=== PATIENT | female | born 1940 | race Caucasian/White ===

== ENCOUNTER 2019-09-04 08:30 | Day surgery (SDC) | payer OTHER ==
[2019-09-04] MEDS ORDERED: LIDOCAINE 2% MPF 5 ML VIAL ONE ×2 (08:41→09:47)
[2019-09-04] MEDS ORDERED: ONDANSETRON 4 MG/2 ML VIAL ONE ×2 (08:41→09:47)
[2019-09-04] MEDS ORDERED: KETOROLAC 30 MG/ML INJ ONE ×2 (08:41→09:47)
--- OUTSIDE RECORDS SUMMARY | 2019-09-04 08:49 | XMS REPORT ---
:1940 Author Organization [facility] t Address [address] [place] [address] Care Team Providers Name Role Phone Unavailable Unavailable Unavailable Payers Payer Name Policy Type Policy Number Effective Date Expiration D ate Problems This patient has no known problems. Allergies, Adverse Reactions, Alerts Allergy Name Allergy Status Severity Reaction(s) Onset Inactive Treat ing Comments Type Date Date Clinician Penicillins DA Active U 2019-05 00:00:0 0 codeine DA Active U 2019-05 00:00:0 0 SULFA DRUGS DA Active U 2019-05 00:00:0 0 Medications This patient has no known medications. Results Test Description Test Time Test Comments Text Results Atomic Results Result Comments BASIC METABOLIC PANEL 2019-06-09 07:51:00 Test Item Value Reference Range Comments SODIUM (test code = NA) 140 MMOL/L 137-145 POTASSIUM (test code = K) 3.8 MMOL/L 3.5-5.1 CHLORIDE (test code = CL) 107 MMOL/L 98-107 CARBON DIOXIDE (test code = CO2) 25 MMOL/L 22-30 ANION GAP (test code = GAP) 12 MMOL/L 14-24 GLUCOSE (test code = GLU) 100 MG/DL 74-106 BLOOD UREA NITROGEN (test code = 28 MG/DL 7-17 BUN) GLOMERULAR FILTRATION RATE (test > 60 Reporting units: ml/min/1.73 m2 code = GFR) (Modified MDRD Formula)Referenc e Range: > or = 60 ml/min/1.73 m 2 CREATININE (test code = CREAT) 0.80 MG/DL 0.52-1.04 CALCIUM (test code = CA) 8.7 MG/DL 8.4-10.2 RECOLLECTION NEEDED ON 06/09/19 AT 0621 BY ROBINGXMREASON: HEMOLYZEDNOTIFIED PATIENT CARE STAFF: ADELA- XR CHEST [id number] 07:36:00 Patient Name: ANAHI TOLEDO Unit No: [id number] EXAMS: CPT CODE: [id number] XR CHEST 1V 35526 EXAM: - XR CHEST 1V 06/09/2019 5:00 AM Location code:C3 HISTORY: 79 years-old Female with S/P ICD TECHNIQUE: Frontal portable view of the chest COMPARISON: Chest x-ray performed on 06/08/2019 FINDINGS: Lines and tubes: None. Cardiomediastinal: The cardiomediastinal silhouette is unchanged. There is a dual-lead pacer overlying the left mid hemithorax. Lungs andpleura: The lungs are clear. No pleural effusion. No pneumothorax. Musculoskeletal: No significant skeletal abnormality. IMPRESSION: No radiographic evidence of a focal infiltrate. Cardiac pacer. at 0736 Reported and signed by: Tevin Bobo MD CC: Quentin Locke MD; Tam Moctezuma MD Technologist: Walt Wolfe, RT(R) Transcrpt Date/Tm/Trnsp: 06/09/2019 (0736) t.SDR.CP11 Orig Print D/T: S: 06/09/2019 (0739) [facility] NAME: ANAHI TOLEDO [id number] PHYS: [place] [address] : 1940 AGE: 79 SEX: F LOC: [id number] PHONE #: [phone] EXAM DATE:06/09/2019 STATUS: ADM IN FAX #: [phone] RADIOLOGY NO: PAGE 1 Signed ReportCBC W/AUTO [id number] 05:49:00 Test Item Value Reference Range Comments WHITE BLOOD CELL (test code = WBC) 6.4 K/MM3 3.8-9.8 RED BLOOD CELL (test code = RBC) 4.19 M/MM3 3.58-4.97 HEMOGLOBIN (test code = HGB) 12.1 G/DL 11.2-14.9 HEMATOCRIT (test code = HCT) 38.0 % 33.2-43.5 MEAN CELL VOLUME (test code = MCV) 91 fL 80.7-99.1 MEAN CELL HGB (test code = MCH) 28.9 pg 27.0-34.1 MEAN CELL HGB CONCETRATION (test code = MCHC) 31.8 % 32 .2-35.7 RED CELL DISTRIBUTION WIDTH (test code = RDW) 14.6 % 12 .1-15.2 PLATELET COUNT (test code = PLT) 190 K/MM3 129-368 MEAN PLATELET VOLUME (test code = MPV) 11.4 fl 7.4-10.4 NEUTROPHIL % (test code = NT%) 59.3 % 43-75 IMMATURE GRANULOCYTE % (test code = IG%) 0.2 % 0.0-2.0 LYMPHOCYTE % (test code = LY%) 30.6 % 14-44 MONOCYTE % (test code = MO%) 8.3 % 4-13 EOSINOPHIL % (test code = EO%) 1.4 % 0-6 BASOPHIL % (test code = BA%) 0.2 % 0-2 NUCLEATED RBC % (test code = NRBC%) 0.0 % 0-1.0 NEUTROPHIL # (test code = NT#) 3.80 K/mm3 2.0-7.6 IMMATURE GRANULOCYTE # (test code = IG#) 0.01 x10 3/uL 0-0.03 LYMPHOCYTE # (test code = LY#) 1.96 K/mm3 1.0-3.8 MONOCYTE # (test code = MO#) 0.53 K/mm3 0.1-0.8 EOSINOPHIL # (test code = EO#) 0.09 K/mm3 0.0-0.2 BASOPHIL # (test code = BA#) 0.01 K/mm3 0.0-0.2 NUCLEATED RBC # (test code = NRBC#) 0.00 K/mm3 0.0-0.1 - XR CHEST [id number] 15:38:00 Patient Name: ANAHI TOLEDO Unit No: [id number] EXAMS: CPT CODE: [id number] XR CHEST 1V [id number] EXAM: Portable chest x-ray Dictation location: [id number]: None INDICATION: S/P ICD DISCUSSION: A dual-lead pacemaker is in place, with mild to moderate cardiac silhouette enlargement. No pneumothorax is identified. Mild interstitial or peribronchial opacity is noted. No consolidation or pleural effusion is seen. No acute bony abnormalities are identified. IMPRESSION: 1. A dual-lead pacemaker is in place. There is no evidence of pneumothorax. 2. Mild to moderate cardiac silhouette enlargement. There is mild interstitial or peribronchial opacity which could be due to senescent change, mild edema, or bronchitis. at 1538 Reported and signed by: Wilber Zavaleta MD CC: Quentin Locke MD; Tam Moctezuma MD Technologist: Jesus Becerril (RT) (R) Transcrpt Date/Tm/Trnsp: 06/08/2019(1538) t.SDR.BC0 Orig Print D/T: S: 06/08/2019 (0864) [facility] NAME: ANAHI TOLEDO [id number] PHYS: [place] [address] : 1940 AGE: 79 SEX: F LOC: [id number] A PHONE #: [phone] EXAM DATE: 06/08/2019 STATUS: ADM IN FAX #: [phone] RADIOLOGY NO: PAGE 1 Signed ReportBASIC METABOLIC [id number] 08:36:00 Test Item Value Reference Range Comments SODIUM (test code = NA) 142 MMOL/L 137-145 POTASSIUM (test code = K) 3.9 MMOL/L 3.5-5.1 CHLORIDE (test code = CL) 104 MMOL/L 98-107 CARBON DIOXIDE (test code = 28 MMOL/L 22-30 CO2) GLUCOSE (test code = GLU) 108 MG/DL 74-106 BLOOD UREA NITROGEN (test code 37 MG/DL 7-17 = BUN) GLOMERULAR FILTRATION RATE 43 Repor ting units: ml/min/1.73 (test code = GFR) m2 (Modified MDRD Formula)Referenc e Range: > or = 60 ml/min/1 .73 m2 CREATININE (test code = CREAT) 1.20 MG/DL 0.52-1.04 CALCIUM (test code = CA) 9.5 MG/DL 8.4-10.2 LIPID PROFILE (CORONARY RISK)2019-06-08 08:36:00 Test Item Value Reference Range Comments TRIGLYCERIDES (test code = 116 MG/DL TRIGL YCERIDES REFERENCE TRIG) RANGE:Normal: <1 50 mg/dLBorderline High: 150-199 mg/dLHigh: 200-4 99 mg/dLVery High: >=500 mg/d L CHOLESTEROL (test code = CHOL) 178 MG/DL <200 HDL CHOLESTEROL (test code = 48 MG/DL 40-59 HDL) LIPOPROTEIN LDL (test code = 99 MG/DL 0-99 LDL) OPTIMAL......... <100 mg/dLNEAR OPTIMA L/ABOVE OPTIMAL......... 100-129 mg/dL BORDER LINE HIGH.........130 -159 mg/dL HIGH.........160 -189 mg/dL MAUREEN Y HIGH.........>/= 190 mg/dL [id number] 08:36:00 Test Item Value Reference Range Comments MAGNESIUM (test code = MAG) 2.1 MG/DL 1.6-2.3 BASIC METABOLIC [id number] 08:26:00 Test Item Value Reference Range Comments SODIUM (test code = NA) 142 MMOL/L 137-145 POTASSIUM (test code = K) 3.9 MMOL/L 3.5-5.1 CHLORIDE (test code = CL) 104 MMOL/L 98-107 CARBON DIOXIDE (test code = 28 MMOL/L 22-30 CO2) GLUCOSE (test code = GLU) 108 MG/DL 74-106 BLOOD UREA NITROGEN (test code 37 MG/DL 7-17 = BUN) GLOMERULAR FILTRATION RATE 43 Repor ting units: ml/min/1.73 (test code = GFR) m2 (Modified MDRD Formula)Referenc e Range: > or = 60 ml/min/1 .73 m2 CREATININE (test code = CREAT) 1.20 MG/DL 0.52-1.04 CALCIUM (test code = CA) 9.5 MG/DL 8.4-10.2 LIPID PROFILE (CORONARY RISK)2019-06-08 08:26:00 Test Item Value Reference Range Comments TRIGLYCERIDES (test code = 116 MG/DL TRIGL YCERIDES REFERENCE TRIG) RANGE:Normal: <1 50 mg/dLBorderline High: 150-199 mg/dLHigh: 200-4 99 mg/dLVery High: >=500 mg/d L CHOLESTEROL (test code = CHOL) 178 MG/DL <200 HDL CHOLESTEROL (test code = 48 MG/DL 40-59 HDL) LIPOPROTEIN LDL (test code = MG/DL 0-99 LDL) [id number] 08:26:00 Test Item Value Reference Range Comments MAGNESIUM (test code = MAG) 2.1 MG/DL 1.6-2.3 BASIC METABOLIC [id number] 08:25:00 Test Item Value Reference Range Comments SODIUM (test code = NA) 142 MMOL/L 137-145 POTASSIUM (test code = K) 3.9 MMOL/L 3.5-5.1 CHLORIDE (test code = CL) 104 MMOL/L 98-107 CARBON DIOXIDE (test code = 28 MMOL/L 22-30 CO2) GLUCOSE (test code = GLU) 108 MG/DL 74-106 BLOOD UREA NITROGEN (test code 37 MG/DL 7-17 = BUN) GLOMERULAR FILTRATION RATE 43 Repor ting units: ml/min/1.73 (test code = GFR) m2 (Modified MDRD Formula)Referenc e Range: > or = 60 ml/min/1 .73 m2 CREATININE (test code = CREAT) 1.20 MG/DL 0.52-1.04 CALCIUM (test code = CA) MG/DL 8.7-9.7 LIPID PROFILE (CORONARY RISK)2019-06-08 08:25:00 Test Item Value Reference Range Comments TRIGLYCERIDES (test code = 116 MG/DL TRIGL YCERIDES REFERENCE TRIG) RANGE:Normal: <1 50 mg/dLBorderline High: 150-199 mg/dLHigh: 200-4 99 mg/dLVery High: >=500 mg/d L CHOLESTEROL (test code = CHOL) 178 MG/DL <200 HDL CHOLESTEROL (test code = MG/DL 40-59 HDL) LIPOPROTEIN LDL (test code = MG/DL 0-99 LDL) [id number] 08:25:00 Test Item Value Reference Range Comments MAGNESIUM (test code = MAG) MG/DL 1.6-2.3 BASIC METABOLIC [id number] 08:22:00 Test Item Value Reference Range Comments SODIUM (test code = NA) 142 MMOL/L 137-145 POTASSIUM (test code = K) 3.9 MMOL/L 3.5-5.1 CHLORIDE (test code = CL) 104 MMOL/L 98-107 CARBON DIOXIDE (test code = CO2) MMOL/L 22-30 GLUCOSE (test code = GLU) MG/DL 74-106 BLOOD UREA NITROGEN (test code = BUN) MG/DL 7-17 GLOMERULAR FILTRATION RATE (test code = GFR) CREATININE (test code = CREAT) MG/DL 0.52-1.04 CALCIUM (test code = CA) MG/DL 8.7-9.7 LIPID PROFILE (CORONARY RISK)2019-06-08 08:22:00 Test Item Value Reference Range Comments TRIGLYCERIDES (test code = TRIG) MG/DL CHOLESTEROL (test code = CHOL) MG/DL <200 HDL CHOLESTEROL (test code = HDL) MG/DL 40-59 LIPOPROTEIN LDL (test code = LDL) MG/DL 0-99 [id number] 08:22:00 Test Item Value Reference Range Comments MAGNESIUM (test code = MAG) MG/DL 1.6-2.3 PROTHROMBIN [id number] 08:17:00 Test Item Value Reference Range Comments PROTHROMBIN TIME PATIENT (test 11.9 SECONDS 9.6-11.6 code = PTP) INTERNATIONAL NORMAL RATIO 1.1 0.8-1.1 The I NR is to be used only (test code = INR) for monitoring oral anticoagulantthe rapy. INDICATION INR VALUE 1. Prophylaxis, vy p venous thrombosis, i ncluding high risk surger y. 2.0 - 3 .0 2. Prophylaxis, vy p venous thrombosis, h ip surgery, treatme nt for deep venous t hrombosis or pulmonary pre vention of systemic embo lism in patients with valvular heart disease, a trial fibrillation, tissue heart valve, or acute myocardial in farction. 2.0 - 3.0 3 . Mechanical prost hesis heart valves, recurrent systemic embolis m. 3.0 - 4. 5 PTT [id number] 08:17:00 Test Item Value Reference Range Comments PTT ACTIVATED (test code = APTT) 25.8 SECONDS 22.0-33.0 CBC W/AUTO [id number] 07:59:00 Test Item Value Reference Range Comments WHITE BLOOD CELL (test code = WBC) 8.1 K/MM3 3.8-9.8 RED BLOOD CELL (test code = RBC) 4.50 M/MM3 3.58-4.97 HEMOGLOBIN (test code = HGB) 13.1 G/DL 11.2-14.9 HEMATOCRIT (test code = HCT) 41.4 % 33.2-43.5 MEAN CELL VOLUME (test code = MCV) 92 fL 80.7-99.1 MEAN CELL HGB (test code = MCH) 29.1 pg 27.0-34.1 MEAN CELL HGB CONCETRATION (test code = MCHC) 31.6 % 32 .2-35.7 RED CELL DISTRIBUTION WIDTH (test code = RDW) 14.6 % 12 .1-15.2 PLATELET COUNT (test code = PLT) 189 K/MM3 129-368 MEAN PLATELET VOLUME (test code = MPV) 10.6 fl 7.4-10.4 NEUTROPHIL % (test code = NT%) 62.6 % 43-75 IMMATURE GRANULOCYTE % (test code = IG%) 0.2 % 0.0-2.0 LYMPHOCYTE % (test code = LY%) 27.5 % 14-44 MONOCYTE % (test code = MO%) 9.0 % 4-13 EOSINOPHIL % (test code = EO%) 0.5 % 0-6 BASOPHIL % (test code = BA%) 0.2 % 0-2 NUCLEATED RBC % (test code = NRBC%) 0.0 % 0-1.0 NEUTROPHIL # (test code = NT#) 5.08 K/mm3 2.0-7.6 IMMATURE GRANULOCYTE # (test code = IG#) 0.02 x10 3/uL 0-0.03 LYMPHOCYTE # (test code = LY#) 2.23 K/mm3 1.0-3.8 MONOCYTE # (test code = MO#) 0.73 K/mm3 0.1-0.8 EOSINOPHIL # (test code = EO#) 0.04 K/mm3 0.0-0.2 BASOPHIL # (test code = BA#) 0.02 K/mm3 0.0-0.2 NUCLEATED RBC # (test code = NRBC#) 0.00 K/mm3 0.0-0.1
--- OUTSIDE RECORDS SUMMARY | 2019-09-04 08:54 | XMS REPORT | Summary of Care ---
:1940 Author Organization [facility] - Health Address [address] [place] [address] Care Team Providers Name Role Phone Pcp, Does Not Have A Primary Care Provider Encounter Details Date Type Department Care Team Description 09/04/2019 Orders Only [facility] Doctor Unassigned, No [address] [facility] [place] [address] [address] [place] [address] Allergies Active Allergy Reactions Severity Noted Date Comments Codeine Other - See comments 11/17/2014 Has had norco 10 07/2019 without issue (other than exc essive sedation). Penicillins Hives 11/17/2014 Was able to hav e ceftriaxone 07/14 020 without hives o r itching. Sulfa (Sulfonamide Unknown - See 11/17/2014 Antibiotics) comments documented as of this encounter (statuses as of 09/04/2019) Medications Medication Sig Dispensed Refills Start Date End Date Status CALCIUM Take by mouth. 0 Acti ve CARBONATE/VITAMIN D2 (CALCIUM 600 + D ORAL) vitamin B-12 Take 1,000 mcg by 0 Active (VITAMIN B-12) 1,000 mouth daily. mcg tablet amLODIPine 5 mg Take 5 mg by mouth 0 Active tablet daily. simvastatin (ZOCOR) Take 40 mg by mouth 0 Active 40 mg tablet at bedtime. Magnesium 250 mg Tab Take by mouth. 0 Active omeprazole 40 mg Take 40 mg by mouth 0 Active capsule daily. loratadine (CLARITIN Take by mouth. 0 Active ORAL) levothyroxine 125 Take 125 mcg by 0 Active mcg tablet mouth. metoprolol succinate Take 0.5 tablets by 90 tablet 3 0 Active XL 25 mg 24 hr mouth 2 (two) times tabletIndications: daily. Closed fracture of left hip, initial encounter montelukast 10 mg Take 1 tablet by 90 tablet 3 08/12/2019 Active tabletIndications: mouth every evening. Closed fracture of left hip, initial encounter sennosides 8.6 mg Take 1 tablet by 30 tablet 0 08/13/2019 Active tabletIndications: mouth daily. Closed fracture of left hip, initial encounter polyethylene glycol Take 17 g by mouth 30 Packet 3 08/12/2019 Active 17 gram/dose daily. powderIndications: Closed fracture of left hip, initial encounter simethicone 80 mg Take 1 tablet by 60 tablet 1 08/12/2019 Active chewable mouth 2 (two) times tabletIndications: daily as needed for Closed fracture of Gas. left hip, initial encounter benzocaine-menthol Take 1 Lozenge by 120 Lozenge 2 08/16/2019 Active lozengeIndications: mouth every 4 (four) Closed fracture of hours as needed for left hip, initial Sore throat. encounter apixaban 5 mg Take 1 tablet by 60 tablet 2 08/16/2019 Active tabletIndications: mouth 2 (two) times prevention of daily. Indications: thromboembolism in prevention of paroxysmal atrial thromboembolism in fib, clotting paroxysmal atrial disorder fibrillation, clotting disorder gabapentin 100 mg Take 1 capsule by 90 capsule 0 08/16/2019 Active capsuleIndications: mouth 3 (three) Closed fracture of times daily. left hip, initial encounter amiodarone 100 mg Take 1 tablet by 30 tablet 2 08/16/2019 Active tabletIndications: mouth daily. Closed fracture of left hip, initial encounter traMADol 50 mg Take 1 tablet by 20 tablet 0 08/16/2019 Active tabletIndications: mouth every 6 (six) Closed fracture of hours as needed for left hip, initial Pain (scale 7-10). 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 Closed displaced intertrochanteric fracture of left fe mur, initial 08/08/2019 encounter Overview: Added automatically from request for xu tobias [id number] documented as of this encounter (statuses as of 09/04/2019) Immunizations Name Administration Dates Next Due Influenza Virus Vaccine - Whole 02/12/2019 documented as of this encounter Social History Tobacco Use Types Packs/Day Years Used Date Never Smoker Smokeless Tobacco: Never Used Alcohol Use Drinks/Week oz/Week Comments No Sex Assigned at Date Recorded Not on file Job Start Date Occupation Industry Not on file Not on file Not on file Travel History Travel Start Travel End No recent travel history available. documented as of this encounter Last Filed Vital Signs Not on filedocumented in this encounter Plan of Treatment Health Maintenance Due Date Last Done Comments DTaP,Tdap,and Td Vaccines (1 - Tdap) 1951 Zoster Recombinant Vaccine (SHINGRIX) (1 of 2) 1988 Medicare Wellness Visit 2003 Osteoporosis Screening 2003 PNEUMOCOCCAL VACCINES 65+ (1 of 2 - PCV13) 2003 INFLUENZA VACCINE Completed 02/12/2019 documented as of this encounter Implants Implanted Type Area Marketing Program Manager Device Shelf Model / Identifier Expiration Date Ser ial / Lot Lead-06/08/2019 Lead Chest [employer] 7741-INGEVITY MRI IS-RV / Implanted: Qty: 1 on 06/08/2019 by Quentin Locke MD [id number] / Description:MR CONDITIONAL UP TO 3.0T Lead-06/08/2019 Lead Chest [employer] 7740-INGEVITY MRI IS-RA / Implanted: Qty: 1 on 06/08/2019 by Quentin Locke MD [id number] / Description:MR CONDITIONAL UP TO 3.0T Nail 11mm/130 Deg Ti Qasim Tfna 420mm/Lef t - Sterile James Ref#[id number] - Sn/A NAIL Left: Leg James 04/13/2029 [id number] / Implanted: Qty: 1 on 08/08/2019 by Claudio Domínguez II, MD at [facility] N/A / [id number] Pacemaker-06/08/2019 PACEMAKER Chest [employer] [id number] MRI DR / Implanted: Qty: 1 on 06/08/2019 by Quentin Locke MD Scientific [id number] / Description:MR CONDITIONAL UP TO 3.0T Screw, Synthes 5.0mm Ti Lckng W/T25 Star 40mm #[id number] - Sn/A SCREW Left: Leg Synthes 05/14/2028 04.005.530 / Implanted: Qty: 1 on 08/08/2019 by Claudio Domínguez II, MD at [facility] N/A / [id number] Screw, Synthes 5.0mm Ti Lckng W/T25 Star 48mm #[id number] - Sn/A SCREW Left: Leg Synthes 05/14/2028 04.005.538S / Implanted: Qty: 1 on 08/08/2019 by Claudio Domínguez II, MD at [facility] N/A / [id number] documented as of this encounter Procedures Procedure Name Priority Date/Time Associated Diagnosis Comme nts EXTERNAL PROVIDER Routine 09/04/2019 12:01 AM CDT RECORDS documented in this encounter Results Not on filedocumented in this encounter Insurance Payer Benefit Plan / Subscriber ID Effective Phone Address T [facility] Group Dates MEDICARE MEDICARE PART xxxxxxxxxxx 2003-Pre [phone] [address] [place] [employer] sent [phone] [place] [phone] [facility] [id number] 1998-Pre [address] [facility] sent [id number] Supplement MEDICARE [place] SUPPLEMENT F[place] BRADSHAW [id number] documented as of this encounter
[2019-09-04] MEDS ORDERED: CEFAZOLIN/SWI 1gm 1 GM/10 ML SYR ONE (09:03)
[2019-09-04] MEDS ORDERED: Ringers Lactate 1,000 ML IV ONE (09:03)
[2019-09-04] MEDS ORDERED: FENTANYL CITR 100 MCG/2 ML ONE (09:47)
[2019-09-04] MEDS ORDERED: propofoL 200 MG/20 ML VIAL IV ONE (09:47)
[2019-09-04] MEDS ORDERED: EPHEDRINE SULF 50 MG/ML VIAL ONE (09:48)
[2019-09-04] MEDS ORDERED: NS 0.9% VIAL 20 ML ONE (09:48)
[2019-09-04] MEDS ORDERED: Phenylephrine HCl 10 MG/ML 1 ML VIAL ONE (09:48)
[2019-09-04] MEDS ORDERED: COLLAGENASE 30 GM OINTMENT TOP ONE (10:15)
[2019-09-04 11:03] VITALS: TEMP 97.6
--- NOTE | 2019-09-04 12:12 | OP ---
Date of Procedure: 09/04/2019 Surgeon: Eugenio Hartman MD Preoperative Diagnosis: Sacral decubitus. Postoperative Diagnosis: Stage IV sacral decubitus. Procedure Performed: Excisional debridement of sacral decubitus, 10 x 10 x 6 cm to subcutaneous tiss ue and muscle, pulse irrigation. Estimated Blood Loss: Minimal. Specimen: Necrotic tissue and culture and sensitivity. Findings: As above. Anesthesia: General. Complications: None. Disposition: Patient tolerated the procedure in stable condition, taken to Recovery in good general condition. Procedure In Detail: Patient was brought to the OR and placed in supine position and general anesthe yo begun. Patient was prepped and draped in the usual sterile fashion in the right lateral position , and then Marcaine 0.5% was infiltrated locally. Please note, the wound was very close to the anus and then scissors and cautery utilized to debride all necrotic tissue all the way down to the sacral bone cutting through the subcutaneous tissue and muscle and all nonviable tissue excised, sent for cu lture and pathology. Pulse irrigation utilized. Bleeding controlled with cautery and then collagena se wet- to-dry dressing change applied. Patient tolerated the procedure in stable condition and taken to rec overy in good general condition. /MODL Voice ID: [id number] Report ID: [id number]
--- NOTE | 2019-09-04 12:21 | DS ---
Patient will go to Day Surgery and senior care when stable. Disposition: senior care. Condition: Stable. Discharge Instructions: Resume diet and medications. Activity as tolerated. Offload wound, turned q.2 hours air mattress. Ultracet 1 tablet p.o. q.4 p.r.n. pain, Cipro 500 mg p.o. q.12, Santyl with wet-to-dry normal saline dressing changes as ordered and I will follow up the patient in the senior care next week. LOUISA/UBALDO Voice ID: [id number] Report ID: [id number]
[2019-09-04 12:30] VITALS: BP 129/51; O2SAT 97
[2019-09-04] MEDS ORDERED: CEFAZOLIN/SWI 2gm 0 GM/0 ML SYR ONE (14:02)
== END 2019-09-04 12:19 | disposition home health service (06) ==
LOC: OR 08:30
PROVIDERS: ATTEND Surgery
PROC: 0KBN0ZZ Excision of Right Hip Muscle, Open Approach (ICD-10-PCS; 2019-09-04)
PROC: 0KBP0ZZ Excision of Left Hip Muscle, Open Approach (ICD-10-PCS; principal; 2019-09-04 09:00)
DX: L89.154 Pressure ulcer of sacral region, stage 4 (principal); I48.91 Unspecified atrial fibrillation; I10 Essential (primary) hypertension; G47.33 Obstructive sleep apnea (adult) (pediatric); Z99.81 Dependence on supplemental oxygen; E78.5 Hyperlipidemia, unspecified; E05.90 Thyrotoxicosis, unspecified without thyrotoxic crisis or storm; K21.9 Gastro-esophageal reflux disease without esophagitis; R53.81 Other malaise; Z88.0 Allergy status to penicillin; Z88.2 Allergy status to sulfonamides; Z88.6 Allergy status to analgesic agent
CPT/HCPCS: 87070; 87205; 88304; 87077; 87186; 87176; 11043; 11046 ×4; J2370; J0690; J7120; J2405; J2704; J3010; J3590

== ENCOUNTER 2020-01-23 01:50 | Inpatient (IN) | payer OTHER ==
--- OUTSIDE RECORDS SUMMARY | 2020-01-23 01:53 | XMS REPORT | Continuity of Care Document ---
:1940 Author Organization [facility] t Address [address] [place] [address] Care Team Providers Name Role Phone Gina HANDLEY Attending Clinician Kayleen Zamarripa MD Attending Clinician Tato Franks PA-C Attending Clinician Payers Payer Name Policy Type Policy Number Effective Date Expiration Date S ource Problems This patient has no known problems. Allergies, Adverse Reactions, Alerts Allergy Allergy Status Severity Reaction(s) Onset Inactive Treating Comm ents Source Name Type Date Date Clinician [place] DA Active U 2020-0 [facility] ins 06-07 00:00: [address] codeine DA Active U 2020-0 [facility] 06-07 00:00: [address] SULFA DA Active U 2020-0 [facility] DRUGS 06-07 00:00: [address] Medications This patient has no known medications. Procedures This patient has no known procedures. Encounters Start End Encounter Admission Attending Care Care Encounter Source Date/Time Date/Time Type Type Clinicians Facility Department ID 2019-10-24 2019-10-24 [facility] [id number] 13:01:00 23:59:00 Encounter Claudio GRIFFITH [id number] CARE [id number] PAVILLION [id number] 2019-10-24 2019-10-24 Abstract Dallin [facility] [id number] 00:00:00 00:00:00 [place] [facility] [id number] [facility] CARE [id number] PAVILLION [id number] 2019-10-23 2019-10-23 Telephone [facility] [id number] 00:00:00 00:00:00 [facility] [id number] CLINICS [id number] 2019-09-19 2019-09-23 Office Gina [facility] [id number] 10:38:20 09:03:40 Visit Claudio [facility] [id number] CARE [id number] PAVILLION [id number] Results Test Description Test Time Test Comments Results Result Comments Source BASIC METABOLIC PANEL 2019-06-09 07:51:00 Test Item Value Reference Range Interpretation Comme nts SODIUM (test code = NA) 140 MMOL/L 137-145 N POTASSIUM (test code = K) 3.8 MMOL/L 3.5-5.1 N CHLORIDE (test code = CL) 107 MMOL/L 98-107 N CARBON DIOXIDE (test code = CO2) 25 MMOL/L 22-30 N ANION GAP (test code = GAP) 12 MMOL/L 14-24 L GLUCOSE (test code = GLU) 100 MG/DL 74-106 N BLOOD UREA NITROGEN (test code = 28 MG/DL 7-17 H BUN) GLOMERULAR FILTRATION RATE (test > 60 Reporting units: ml/min/1.73 code = GFR) m2 (Modified M DRD Formula)Referen ce Range: > or = 60 ml/min/1.7 3 m2 CREATININE (test code = CREAT) 0.80 MG/DL 0.52-1.04 N CALCIUM (test code = CA) 8.7 MG/DL 8.4-10.2 N RECOLLECTION NEEDED ON 06/09/19 AT 0621 BY ROBINGXMREASON: HEMOLYZEDNOTIFIED PATIENT CARE STAFF: JADYN XR CHEST [id number] 07:36:00 Patient Name: ANAHI TOLEDO Unit No: [id number] EXAMS: CPT CODE: [id number] XR CHEST 1V [id number] EXAM: - XR CHEST 1V 06/09/2019 5:00 [...] Walt Wolfe, RT(R) Transcrpt Date/Tm/Trnsp: 06/09/2019 (0736) [email or web address] Orig Print D/T: S: 06/09/2019 (0739) [facility] NAME: ANAHI TOLEDO [id number] PHYS: [place] [address] : 1940 AGE: 79 SEX: F LOC: Z.357 A PHONE #: [phone] EXAM DATE:06/09/2019 STATUS: ADM IN FAX #: [phone] RADIOLOGY NO: PAGE 1 Signed ReportCBC W/AUTO [id number] 05:49:00 Test Item Value Reference Range Interpretation Comments WHITE BLOOD CELL (test code = 6.4 K/MM3 3.8-9.8 N WBC) RED BLOOD CELL (test code = 4.19 M/MM3 3.58-4.97 N RBC) HEMOGLOBIN (test code = HGB) 12.1 G/DL 11.2-14.9 N HEMATOCRIT (test code = HCT) 38.0 % 33.2-43.5 N MEAN CELL VOLUME (test code = 91 fL 80.7-99.1 N MCV) MEAN CELL HGB (test code = MCH) 28.9 pg 27.0-34.1 N MEAN CELL HGB CONCETRATION 31.8 % 32.2-35.7 L (test code = MCHC) RED CELL DISTRIBUTION WIDTH 14.6 % 12.1-15.2 N (test code = RDW) PLATELET COUNT (test code = 190 K/MM3 129-368 N PLT) MEAN PLATELET VOLUME (test code 11.4 fl 7.4-10.4 H = MPV) NEUTROPHIL % (test code = NT%) 59.3 % 43-75 N IMMATURE GRANULOCYTE % (test 0.2 % 0.0-2.0 N code = IG%) LYMPHOCYTE % (test code = LY%) 30.6 % 14-44 N MONOCYTE % (test code = MO%) 8.3 % 4-13 N EOSINOPHIL % (test code = EO%) 1.4 % 0-6 N BASOPHIL % (test code = BA%) 0.2 % 0-2 N NUCLEATED RBC % (test code = 0.0 % 0-1.0 N NRBC%) NEUTROPHIL # (test code = NT#) 3.80 K/mm3 2.0-7.6 N IMMATURE GRANULOCYTE # (test 0.01 x10 3/uL 0-0.03 N code = IG#) LYMPHOCYTE # (test code = LY#) 1.96 K/mm3 1.0-3.8 N MONOCYTE # (test code = MO#) 0.53 K/mm3 0.1-0.8 N EOSINOPHIL # (test code = EO#) 0.09 K/mm3 0.0-0.2 N BASOPHIL # (test code = BA#) 0.01 K/mm3 0.0-0.2 N NUCLEATED RBC # (test code = 0.00 K/mm3 0.0-0.1 N NRBC#) - XR CHEST [id number] 15:38:00 Patient Name: ANAHI TOLEDO Unit No: [id number] EXAMS: CPT CODE: [id number] XR CHEST 1V [id number] EXAM: Portable chest x-ray Dictation location: [id number]: None INDICATION: S/P ICD DISCUSSION: A dual-lead [...] 06/08/2019(1538) [email or web address] Orig Print D/T: S: 06/08/2019 (2521) [facility] NAME: ANAHI TOLEDO [place] [address] PHYS: [place] [address] : 1940 AGE: 79 SEX: F LOC: Z.357 A PHONE #: [phone] EXAM DATE: 06/08/2019 STATUS: ADM IN FAX #: [phone] RADIOLOGY NO: PAGE 1 Signed ReportBASIC METABOLIC [id number] 08:36:00 Test Item Value Reference Range Interpretation Comments SODIUM (test code = 142 MMOL/L 137-145 N NA) POTASSIUM (test code = 3.9 MMOL/L 3.5-5.1 N K) CHLORIDE (test code = 104 MMOL/L 98-107 N CL) CARBON DIOXIDE (test 28 MMOL/L 22-30 N code = CO2) GLUCOSE (test code = 108 MG/DL 74-106 H GLU) BLOOD UREA NITROGEN 37 MG/DL 7-17 H (test code = BUN) GLOMERULAR FILTRATION 43 Report ing units: RATE (test code = GFR) ml/mi n/1.73 m2 (Modified MDRD Formula)Referen ce Range: > or = 6 0 ml/min/1.73 m2 CREATININE (test code 1.20 MG/DL 0.52-1.04 H = CREAT) CALCIUM (test code = 9.5 MG/DL 8.4-10.2 N CA) LIPID PROFILE (CORONARY RISK)2019-06-08 08:36:00 Test Item Value Reference Range Interpretation Comments TRIGLYCERIDES (test 116 MG/DL TRIGLYCE RIDES code = TRIG) REFERENCE RANGE:Normal: < 150 mg/dLBorderline High: 150-199 mg/dLHi gh: 200-499 mg/dLVe ry High: >=500 mg/ dL CHOLESTEROL (test code 178 MG/DL <200 = CHOL) HDL CHOLESTEROL (test 48 MG/DL 40-59 N code = HDL) LIPOPROTEIN LDL (test 99 MG/DL 0-99 N code = LDL) OPTIMAL........ .<100 mg/dLNEAR OPTIMAL/ABOVE OPTIMAL........ .100-12 9 mg/dL BORDERLINE HIGH.........13 0-159 mg/dL HIGH.........16 0-189 mg/dL VERY HIGH...... ...>/= 190 mg/dL [id number] 08:36:00 Test Item Value Reference Range Interpretation Comments MAGNESIUM (test code = MAG) 2.1 MG/DL 1.6-2.3 N BASIC METABOLIC [id number] 08:26:00 Test Item Value Reference Range Interpretation Comments SODIUM (test code = 142 MMOL/L 137-145 N NA) POTASSIUM (test code = 3.9 MMOL/L 3.5-5.1 N K) CHLORIDE (test code = 104 MMOL/L 98-107 N CL) CARBON DIOXIDE (test 28 MMOL/L 22-30 N code = CO2) GLUCOSE (test code = 108 MG/DL 74-106 H GLU) BLOOD UREA NITROGEN 37 MG/DL 7-17 H (test code = BUN) GLOMERULAR FILTRATION 43 Report ing units: RATE (test code = GFR) ml/mi n/1.73 m2 (Modified MDRD Formula)Referen ce Range: > or = 6 0 ml/min/1.73 m2 CREATININE (test code 1.20 MG/DL 0.52-1.04 H = CREAT) CALCIUM (test code = 9.5 MG/DL 8.4-10.2 N CA) LIPID PROFILE (CORONARY RISK)2019-06-08 08:26:00 Test Item Value Reference Range Interpretation Comments TRIGLYCERIDES (test 116 MG/DL TRIGLYCE RIDES code = TRIG) REFERENCE RANGE:Normal: < 150 mg/dLBorderline High: 150-199 mg/dLHi gh: 200-499 mg/dLVe ry High: >=500 mg/ dL CHOLESTEROL (test code 178 MG/DL <200 = CHOL) HDL CHOLESTEROL (test 48 MG/DL 40-59 N code = HDL) LIPOPROTEIN LDL (test MG/DL 0-99 code = LDL) [id number] 08:26:00 Test Item Value Reference Range Interpretation Comments MAGNESIUM (test code = MAG) 2.1 MG/DL 1.6-2.3 N BASIC METABOLIC [id number] 08:25:00 Test Item Value Reference Range Interpretation Comments SODIUM (test code = 142 MMOL/L 137-145 N NA) POTASSIUM (test code = 3.9 MMOL/L 3.5-5.1 N K) CHLORIDE (test code = 104 MMOL/L 98-107 N CL) CARBON DIOXIDE (test 28 MMOL/L 22-30 N code = CO2) GLUCOSE (test code = 108 MG/DL 74-106 H GLU) BLOOD UREA NITROGEN 37 MG/DL 7-17 H (test code = BUN) GLOMERULAR FILTRATION 43 Report ing units: RATE (test code = GFR) ml/mi n/1.73 m2 (Modified MDRD Formula)Referen ce Range: > or = 6 0 ml/min/1.73 m2 CREATININE (test code 1.20 MG/DL 0.52-1.04 H = CREAT) CALCIUM (test code = MG/DL 8.7-9.7 CA) LIPID PROFILE (CORONARY RISK)2019-06-08 08:25:00 Test Item Value Reference Range Interpretation Comments TRIGLYCERIDES (test 116 MG/DL TRIGLYCE RIDES code = TRIG) REFERENCE RANGE:Normal: < 150 mg/dLBorderline High: 150-199 mg/dLHi gh: 200-499 mg/dLVe ry High: >=500 mg/ dL CHOLESTEROL (test code 178 MG/DL <200 = CHOL) HDL CHOLESTEROL (test MG/DL 40-59 code = HDL) LIPOPROTEIN LDL (test MG/DL 0-99 code = LDL) [id number] 08:25:00 Test Item Value Reference Range Interpretation Comments MAGNESIUM (test code = MAG) MG/DL 1.6-2.3 BASIC METABOLIC [id number] 08:22:00 Test Item Value Reference Range Interpretation Comments SODIUM (test code = NA) 142 MMOL/L 137-145 N POTASSIUM (test code = K) 3.9 MMOL/L 3.5-5.1 N CHLORIDE (test code = CL) 104 MMOL/L 98-107 N CARBON DIOXIDE (test code = CO2) MMOL/L 22-30 GLUCOSE (test code = GLU) MG/DL 74-106 BLOOD UREA NITROGEN (test code = MG/DL 7-17 BUN) GLOMERULAR FILTRATION RATE (test code = GFR) CREATININE (test code = CREAT) MG/DL 0.52-1.04 CALCIUM (test code = CA) MG/DL 8.7-9.7 LIPID PROFILE (CORONARY RISK)2019-06-08 08:22:00 Test Item Value Reference Range Interpretation Comments TRIGLYCERIDES (test code = TRIG) MG/DL CHOLESTEROL (test code = CHOL) MG/DL <200 HDL CHOLESTEROL (test code = HDL) MG/DL 40-59 LIPOPROTEIN LDL (test code = LDL) MG/DL 0-99 [id number] 08:22:00 Test Item Value Reference Range Interpretation Comments MAGNESIUM (test code = MAG) MG/DL 1.6-2.3 PROTHROMBIN [id number] 08:17:00 Test Item Value Reference Range Interpretation Comments PROTHROMBIN TIME 11.9 SECONDS 9.6-11.6 H PATIENT (test code = PTP) INTERNATIONAL NORMAL 1.1 0.8-1.1 N The INR is to be RATIO (test code = used only for INR) monitoring oral anticoagulantth erap y. INDICATION I NR VALUE ---- ---- ---- -------1. Prophylaxis, de ep venous thrombos is, including hig h risk surgery. 2.0 - 3.0 2. Prophylaxis, de ep venous thrombos is, hip surgery, treatment for d eep venous thrombosis or pulmonary prevention of systemic emboli sm in patients wit h valvular heart disease, atrial fibrillation, tissue heart va lve, or acute myocar dial infarction. 2.0 - 3 .0 3. Mechanical prosthesis hear t valves, recurrent syste nicola embolism. 3.0 - 4.5 PTT [id number] 08:17:00 Test Item Value Reference Range Interpretation Comments PTT ACTIVATED (test code = APTT) 25.8 SECONDS 22.0-33.0 N CBC W/AUTO [id number] 07:59:00 Test Item Value Reference Range Interpretation Comments WHITE BLOOD CELL (test code = 8.1 K/MM3 3.8-9.8 N WBC) RED BLOOD CELL (test code = 4.50 M/MM3 3.58-4.97 N RBC) HEMOGLOBIN (test code = HGB) 13.1 G/DL 11.2-14.9 N HEMATOCRIT (test code = HCT) 41.4 % 33.2-43.5 N MEAN CELL VOLUME (test code = 92 fL 80.7-99.1 N MCV) MEAN CELL HGB (test code = MCH) 29.1 pg 27.0-34.1 N MEAN CELL HGB CONCETRATION 31.6 % 32.2-35.7 L (test code = MCHC) RED CELL DISTRIBUTION WIDTH 14.6 % 12.1-15.2 N (test code = RDW) PLATELET COUNT (test code = 189 K/MM3 129-368 N PLT) MEAN PLATELET VOLUME (test code 10.6 fl 7.4-10.4 H = MPV) NEUTROPHIL % (test code = NT%) 62.6 % 43-75 N IMMATURE GRANULOCYTE % (test 0.2 % 0.0-2.0 N code = IG%) LYMPHOCYTE % (test code = LY%) 27.5 % 14-44 N MONOCYTE % (test code = MO%) 9.0 % 4-13 N EOSINOPHIL % (test code = EO%) 0.5 % 0-6 N BASOPHIL % (test code = BA%) 0.2 % 0-2 N NUCLEATED RBC % (test code = 0.0 % 0-1.0 N NRBC%) NEUTROPHIL # (test code = NT#) 5.08 K/mm3 2.0-7.6 N IMMATURE GRANULOCYTE # (test 0.02 x10 3/uL 0-0.03 N code = IG#) LYMPHOCYTE # (test code = LY#) 2.23 K/mm3 1.0-3.8 N MONOCYTE # (test code = MO#) 0.73 K/mm3 0.1-0.8 N EOSINOPHIL # (test code = EO#) 0.04 K/mm3 0.0-0.2 N BASOPHIL # (test code = BA#) 0.02 K/mm3 0.0-0.2 N NUCLEATED RBC # (test code = 0.00 K/mm3 0.0-0.1 N NRBC#)
[2020-01-23 02:41] LABS: Protime INR 2.29
[2020-01-23 02:44] LABS: Absolute Lymphocytes (CBC) 0.8 K/uL (0.7-4.9); Basophils % 0.2 % (0-1.3); Hematocrit 29.1 % (36.0-45.0); Lymphocytes % 9.6 % (15.3-44.8); MPV 8.9 fL (7.6-11.3); RBC Red Blood Cell Count 3.72 M/uL (3.86-4.86)
[2020-01-23 03:03] LABS: Potassium 3.8 mmol/L (3.5-5.1)
[2020-01-23 03:32] LABS: Albumin 2.5 g/dL (3.4-5.0); Bilirubin Direct 0.2 mg/dL (0-0.2); Bilirubin Total 0.7 mg/dL (0.2-1.0); Magnesium 2.2 mg/dL (1.8-2.4); Troponin (Emerg Dept Use Only) 0.45 ng/mL (0.0-0.045)
[2020-01-23] MEDS ORDERED: FUROSEMIDE 20 MG/ 2ML VIAL ONE (04:08)
--- NOTE | 2020-01-23 04:09 | ER ---
Nurse's Notes [facility] Name: Chhaya Crisostomo Age: 79 yrs Sex: Female : 1940 Arrival Date: 01/23/2020 Time: 01:54 Bed 6 Private MD: Diagnosis: CHF Exacerbation Presentation: 01/22 01:56 Chief complaint: EMS states: BIBA FROM [facility] WITH LOW SPO2 AT 75 UPON mt2 ARRIVAL. PLACED ON 4 LITER OIF 02 INCREASED TO 93%. HAD PNA 3 WEEKS AGO. DENIES FEVER OR SOB. STATE DRY COUGH. SPO02 AT 74% RA UPON ARRIVAL TO ED. Coronavirus screen: At this time, the client does not indicate any symptoms associated with coronavirus-19. Ebola Screen: No symptoms or risks identified at this time. Initial Sepsis Screen: Does the patient meet any 2 criteria? No. Patient's initial sepsis screen is negative. Does the patient have a suspected source of infection? No. Patient's initial sepsis screen is negative. Risk Assessment: Do you want to hurt yourself or someone else? Patient reports no desire to harm self or others. Onset of symptoms was January 22, 2020. Care prior to arrival: NC PLACED. 01:56 Method Of Arrival: EMS: [facility] mt2 01:56 Acuity: KRISTOPHER 3 mt2 Triage Assessment: 02:01 General: Appears uncomfortable, Behavior is cooperative. Pain: Denies pain. mt2 Historical: - Allergies: 02:01 PENICILLINS; mt2 02:01 Sulfa (Sulfonamide Antibiotics); mt2 02:01 Codeine; mt2 02:04 Codeine; vc 02:04 PENICILLINS; vc 02:04 Sulfa (Sulfonamide Antibiotics); vc - Home Meds: 02:26 amiodarone 100 mg Oral tab 1 tab once daily for Prevention of Recurrent Atrial vc Fibrillation [Active]; amlodipine 5 mg tab 1 tab once daily [Active]; Arginaid 4.5 gram-156 mg/9.2 gram oral pwpk daily [Active]; ascorbic acid (vitamin C) 500 mg tab daily [Active]; calcium carbonate 500 mg calcium (1,250 mg) Oral chew twice a day [Active]; calcium carbonate-vitamin D3 600 mg(1,500mg) -400 unit oral cap daily [Active]; Cepacol Maximum Strength MM every 4 hours [Active]; cyanocobalamin (vitamin B-12) 1,000 mcg oral tab daily [Active]; Eliquis 5 mg oral tab 2 times per day [Active]; gabapentin 100 mg oral cap 3 times per day [Active]; Guaifenesin DM 100-10 Oral 10 mL every 6 hours [Active]; Lasix 40 mg Oral tab 1 tab once daily [Active]; levothyroxine 100 mcg tab 1 tab once daily [Active]; loratadine 10 mg oral tab 1 tab once daily [Active]; magnesium oxide 400 mg Oral tab daily [Active]; metoprolol succinate 25 mg oral Tb24 0.5 tab twice a day [Active]; Miralax 17 gram/dose Oral powd once daily [Active]; multivitamin with minerals oral tab daily [Active]; omeprazole 20 mg Oral cpDR 2 caps once daily [Active]; potassium chloride 10 mEq Oral TbER 1 tab once daily [Active]; sennosides 8.6 mg oral tab 1 tabs once daily [Active]; simethicone 80 mg Oral chew 80 mg twice a day [Active]; simvastatin 40 mg Oral tab 1 tab once daily [Active]; Singulair 10 mg Oral tab 1 tab once daily [Active]; Tessalon Perles 100 mg Oral cap 1 cap 3 times per day for Cough [Active]; tramadol 50 mg Oral tab 1 tab every 4 hours [Active]; tramadol-acetaminophen 37.5-325 mg Oral tab 1 tabs every 4 hours [Active]; Xopenex 0.63 mg/3 mL Nebulizer nebu 3 mL every 6 hours [Active]; zinc sulfate 220 (50) mg Oral cap daily [Active]; Zofran (as hydrochloride) 4 mg Oral tab 1 tabs every 8 hours [Active]; - PMHx: 02:04 Atrial Fib; CVA; Dysphagia; Hyperlipidemia; Hypothyroidism; 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 - Social history:: Smoking status: Patient denies any tobacco usage or history of. Smoking status: unknown. Screenin:01 Abuse screen: Denies threats or abuse. Nutritional screening: No deficits noted. mt2 Tuberculosis screening: No symptoms or risk factors identified. Fall Risk No fall in past 12 months (0 pts). Ambulatory Aid- Gait- Weak (10 pts.). Assessment: 02:18 Neuro: No deficits noted. Cardiovascular: Rhythm is sinus tachycardia. Respiratory: mt2 Reports LOW SPO02. GI: No deficits noted. : No deficits noted. EENT: No deficits noted. Derm: Decubitus located on sacrum. Musculoskeletal: No deficits noted. Musculoskeletal: Swelling present in right leg and left leg Reports GENERALIZED WEAKNESS. 02:28 Reassessment: Primary Physician, Radha Cabrera [phone]. Reassessment: Emergency vc contact daughter, Bernie Pretty, [phone]. 03:30 Reassessment: Patient and/or family updated on plan of care and expected duration. Pain mt2 level reassessed. Patient is alert, oriented x 3, equal unlabored respirations, skin warm/dry/pink. General: Appears comfortable, Behavior is cooperative. Pain: Denies pain. 04:51 Reassessment: Patient and/or family updated on plan of care and expected duration. Pain mt2 level reassessed. Patient is alert, oriented x 3, equal unlabored respirations, skin warm/dry/pink. Patient denies pain at this time. General: Appears comfortable, Behavior is cooperative. Vital Signs: 01:56 BP 144 / 83; Pulse 108; Resp 19; Temp 97.9(O); Pulse Ox 74% on R/A; Weight 81.19 kg; mt2 Height 5 ft. 5 in. (165.10 cm); Pain 0/10; 02:39 BP 125 / 54; Pulse 97; Resp 27; Pulse Ox 95% on 4 lpm NC; Pain 0/10; mt2 03:21 BP 117 / 91; Pulse 82; Resp 22; Pulse Ox 93% on 2 lpm NC; mg2 04:23 BP 118 / 74; Pulse 80; Resp 16; Temp 98.0; Pulse Ox 95% on 4 lpm NC; Pain 0/10; mt2 01:56 Body Mass Index 29.79 (81.19 kg, 165.10 cm) mt2 ED Course: 01:54 Patient arrived in ED. vc 01:56 Carolina Torres, RAUL is Primary Nurse. mt2 01:59 Camilo Major MD is Attending Physician. 7 02:00 Triage completed. mt2 02:01 Patient has correct armband on for positive identification. Bed in low position. Call mt2 light in reach. Side rails up X 1. 02:01 Arm band placed on left wrist. mt2 02:10 Initial lab(s) drawn, by me, sent to lab. First set of blood cultures drawn by me. mt2 02:28 Second set of blood cultures drawn by me. mt2 02:38 Inserted saline lock: 20 gauge in left antecubital area, using aseptic technique. Blood mt2 collected. 02:53 No provider procedures requiring assistance completed. Flu and/or RSV swab sent to lab. mg2 Strep swab sent to lab. covid test sent to lab. 03:14 Chest Single View XRAY In Process Unspecified. EDMS 03:26 SARS-COV-2 RT PCR Sent. mt2 04:08 Omar Mcguire is Hospitalizing Provider. [facility] 04:50 Patient admitted, IV remains in place. mt2 Administered Medications: 04:29 Drug: Lasix 20 mg Route: IVP; Site: left antecubital; mt2 04:52 Follow up: Response: No adverse reaction mt2 Outcome: 04:08 Decision to Hospitalize by Provider. 7 04:50 Condition: stable mt2 04:50 Instructed on the need for admit. 05:09 Admitted to Med/surg accompanied by nurse, room 217, with oxygen, Report called to mt2 DANIELLE CARTER 05:31 Patient left the ED. [facility] Signatures: Dispatcher [employer] EDWY Loi Kay RN RN [facility] Maribel Blakely RN RN Camilo Major MD MD [facility] Carolina Torres RN RN or2 Corrections: (The following items were deleted from the chart) 03:22 03:21 BP 117 / 91; Pulse 82bpm; Resp 18bpm; Pulse Ox 93% 2 lpm Nasal Cannula; mg2 mg2 03:22 03:21 BP 117 / 91; Pulse 82bpm; Resp 20bpm; Pulse Ox 93% 2 lpm Nasal Cannula; mg2 mg2 04:55 02:18 Musculoskeletal: No deficits noted. Reports GENERALIZED WEAKNESS mt2 or2
--- NOTE | 2020-01-23 04:09 | EDPHYS ---
Physician Documentation [facility] Name: Chhaya Crisostomo Age: 79 yrs Sex: Female : 1940 Arrival Date: 01/23/2020 Time: 01:54 Bed 6 Private MD: ED Physician Camilo Major HPI: 01/22 02:48 This 79 yrs old Female presents to ER via EMS with complaints of Cough. mh7 02:48 The patient or guardian reports cough, that is intermittent, described as moderate, mh7 difficulty breathing. Onset: The symptoms/episode began/occurred yesterday. Severity of symptoms: At their worst the symptoms were moderate, last night, in the emergency department the symptoms are unchanged. Modifying factors: The symptoms are alleviated by nothing, the symptoms are aggravated by nothing. Associated signs and symptoms: Pertinent negatives: chest pain, diarrhea, ear ache, fever, nausea, rhinorrhea, sore throat, vomiting. 02:49 Patient with low oxygen saturation of 70's at nursing facility. She was placed on mh7 supplemental oxygen with improvement. She has had a non productive cough. Denies fever, chest pain, abdominal pain, nausea, vomiting.. Historical: - Allergies: 02:01 PENICILLINS; mt2 02:01 Sulfa (Sulfonamide Antibiotics); mt2 02:01 Codeine; mt2 02:04 Codeine; vc 02:04 PENICILLINS; vc 02:04 Sulfa (Sulfonamide Antibiotics); vc - Home Meds: 02:26 amiodarone 100 mg Oral tab 1 tab once daily for Prevention of Recurrent Atrial vc Fibrillation [Active]; amlodipine 5 mg tab 1 tab once daily [Active]; Arginaid 4.5 gram-156 mg/9.2 gram oral pwpk daily [Active]; ascorbic acid (vitamin C) 500 mg tab daily [Active]; calcium carbonate 500 mg calcium (1,250 mg) Oral chew twice a day [Active]; calcium carbonate-vitamin D3 600 mg(1,500mg) -400 unit oral cap daily [Active]; Cepacol Maximum Strength MM every 4 hours [Active]; cyanocobalamin (vitamin B-12) 1,000 mcg oral tab daily [Active]; Eliquis 5 mg oral tab 2 times per day [Active]; gabapentin 100 mg oral cap 3 times per day [Active]; Guaifenesin DM 100-10 Oral 10 mL every 6 hours [Active]; Lasix 40 mg Oral tab 1 tab once daily [Active]; levothyroxine 100 mcg tab 1 tab once daily [Active]; loratadine 10 mg oral tab 1 tab once daily [Active]; magnesium oxide 400 mg Oral tab daily [Active]; metoprolol succinate 25 mg oral Tb24 0.5 tab twice a day [Active]; Miralax 17 gram/dose Oral powd once daily [Active]; multivitamin with minerals oral tab daily [Active]; omeprazole 20 mg Oral cpDR 2 caps once daily [Active]; potassium chloride 10 mEq Oral TbER 1 tab once daily [Active]; sennosides 8.6 mg oral tab 1 tabs once daily [Active]; simethicone 80 mg Oral chew 80 mg twice a day [Active]; simvastatin 40 mg Oral tab 1 tab once daily [Active]; Singulair 10 mg Oral tab 1 tab once daily [Active]; Tessalon Perles 100 mg Oral cap 1 cap 3 times per day for Cough [Active]; tramadol 50 mg Oral tab 1 tab every 4 hours [Active]; tramadol-acetaminophen 37.5-325 mg Oral tab 1 tabs every 4 hours [Active]; Xopenex 0.63 mg/3 mL Nebulizer nebu 3 mL every 6 hours [Active]; zinc sulfate 220 (50) mg Oral cap daily [Active]; Zofran (as hydrochloride) 4 mg Oral tab 1 tabs every 8 hours [Active]; - PMHx: 02:04 Atrial Fib; CVA; Dysphagia; Hyperlipidemia; Hypothyroidism; 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 - Social history:: Smoking status: Patient denies any tobacco usage or history of. Smoking status: unknown. ROS: 02:49 Constitutional: Negative for fever, chills, and weight loss, Eyes: Negative for injury, mh7 pain, redness, and discharge, ENT: Negative for injury, pain, and discharge, Neck: Negative for injury, pain, and swelling, Cardiovascular: Negative for chest pain, palpitations, and edema, Abdomen/GI: Negative for abdominal pain, nausea, vomiting, diarrhea, and constipation, Back: Negative for injury and pain, : Negative for injury, bleeding, discharge, and swelling, MS/Extremity: Negative for injury and deformity, Skin: Negative for injury, rash, and discoloration, Neuro: Negative for headache, weakness, numbness, tingling, and seizure, Psych: Negative for depression, anxiety, suicide ideation, homicidal ideation, and hallucinations, Allergy/Immunology: Negative for hives, rash, and allergies, Endocrine: Negative for neck swelling, polydipsia, polyuria, polyphagia, and marked weight changes, Hematologic/Lymphatic: Negative for swollen nodes, abnormal bleeding, and unusual bruising. Exam: 02:49 Head/Face: Normocephalic, atraumatic. Eyes: Pupils equal round and reactive to light, mh7 extra-ocular motions intact. Lids and lashes normal. Conjunctiva and sclera are non-icteric and not injected. Cornea within normal limits. Periorbital areas with no swelling, redness, or edema. Neck: Trachea midline, no thyromegaly or masses palpated, and no cervical lymphadenopathy. Supple, full range of motion without nuchal rigidity, or vertebral point tenderness. No Meningismus. Chest/axilla: Normal chest wall appearance and motion. Nontender with no deformity. No lesions are appreciated. 02:49 Abdomen/GI: Soft, non-tender, with normal bowel sounds. No distension or tympany. No guarding or rebound. No evidence of tenderness throughout. Back: No spinal tenderness. No costovertebral tenderness. Full range of motion. Skin: Warm, dry with normal turgor. Normal color with no rashes, no lesions, and no evidence of cellulitis. MS/ Extremity: Pulses equal, no cyanosis. Neurovascular intact. Full, normal range of motion. Neuro: Awake and alert, GCS 15, oriented to person, place, time, and situation. Cranial nerves II-XII grossly intact. Motor strength 5/5 in all extremities. Sensory grossly intact. Cerebellar exam normal. Normal gait. Psych: Awake, alert, with orientation to person, place and time. Behavior, mood, and affect are within normal limits. 02:49 Constitutional: The patient appears in no acute distress, alert, awake, uncomfortable. 02:49 Cardiovascular: Rate: normal, Rhythm: irregularly irregular, Pulses: no pulse deficits are appreciated, Heart sounds: normal, normal S1and S2, Edema: pedal edema, that is mild, JVD: is not appreciated. 02:49 Respiratory: mild respiratory distress is noted, Respirations: prolonged exhalation, that is mild, Breath sounds: rales, that are mild, are located in both bases, Respiratory rate: 27 Vital Signs: 01:56 BP 144 / 83; Pulse 108; Resp 19; Temp 97.9(O); Pulse Ox 74% on R/A; Weight 81.19 kg; mt2 Height 5 ft. 5 in. (165.10 cm); Pain 0/10; 02:39 BP 125 / 54; Pulse 97; Resp 27; Pulse Ox 95% on 4 lpm NC; Pain 0/10; mt2 03:21 BP 117 / 91; Pulse 82; Resp 22; Pulse Ox 93% on 2 lpm NC; mg2 04:23 BP 118 / 74; Pulse 80; Resp 16; Temp 98.0; Pulse Ox 95% on 4 lpm NC; Pain 0/10; mt2 01:56 Body Mass Index 29.79 (81.19 kg, 165.10 cm) ri2 MDM: 02:20 Patient medically screened. [facility] 04:06 Differential Diagnosis: Influenza Upper Respiratory Infection Viral Syndrome Pneumonia mh7 Other CHF exacerbation. Data reviewed: vital signs, nurses notes, lab test result(s), cardiac enzymes, CBC, electrolytes, Flu: urinalysis, EKG, radiologic studies, plain films. Data interpreted: Pulse oximetry: on 2L(s) per nasal canula, is 93 %. Interpretation: acceptable. Counseling: I had a detailed discussion with the patient and/or guardian regarding: the historical points, exam findings, and any diagnostic results supporting the discharge/admit diagnosis, lab results, radiology results, the need for further work-up and treatment in the hospital. Response to treatment: the patient's symptoms have mildly improved after treatment. 01/22 02:18 Order name: CBC with Diff [facility] 01/22 02:18 Order name: BMP; Complete Time: 03:08 [facility] 01/22 02:18 Order name: Lactate; Complete Time: 03:08 [facility] 01/22 02:18 Order name: Blood Culture Adult (2) [facility] 01/22 02:21 Order name: LFT's; Complete Time: 03:40 [facility] 01/22 02:21 Order name: Magnesium; Complete Time: 03:40 [facility] 01/22 02:21 Order name: NT PRO-BNP; Complete Time: 03:40 [facility] 01/22 02:21 Order name: PT-INR; Complete Time: 03:00 [facility] 01/22 02:21 Order name: Troponin (emerg Dept Use Only); Complete Time: 03:40 [facility] 01/22 02:33 Order name: Flu; Complete Time: 03:56 mg2 01/22 02:33 Order name: Strep; Complete Time: 03:56 mg2 01/22 02:57 Order name: Manual Differential EDKS 01/22 03:07 Order name: SARS-COV-2 RT PCR [facility] 01/22 02:18 Order name: Chest Single View XRAY ri2 01/22 02:21 Order name: EKG; Complete Time: 02:22 [facility] 01/22 02:21 Order name: Cardiac monitoring; Complete Time: 02:24 [facility] 01/22 02:21 Order name: EKG - Nurse/Tech; Complete Time: 02:24 [facility] 01/22 02:21 Order name: IV Saline Lock; Complete Time: 02:24 [facility] 01/22 02:21 Order name: Labs collected and sent; Complete Time: 02:24 [facility] 01/22 02:21 Order name: O2 Per Protocol; Complete Time: 02:24 [facility] 01/22 02:21 Order name: O2 Sat Monitoring; Complete Time: 02:24 [facility] 01/22 03:42 Order name: EKG - Nurse/Tech; Complete Time: 04:52 01/22 03:53 Order name: Throat Culture [facility] 01/22 04:30 Order name: CONS Physician Consult [facility] Administered Medications: 04:29 Drug: Lasix 20 mg Route: IVP; Site: left antecubital; mt2 04:52 Follow up: Response: No adverse reaction mt2 Disposition: 01/23/20 04:08 Hospitalization ordered by Omar Mcguire for Observation. Preliminary diagnosis is CHF Exacerbation. - Bed requested for Telemetry/MedSurg (observation). - Status is Observation. mt2 - Condition is Stable. - Problem is an acute exacerbation. - Symptoms have improved. Signatures: Dispatcher [employer] EDKS Reji Luu RN RN Jazmin Villarreal RN RN tl1 Maribel Blakely RN RN Camilo Major MD MD 7 Carolina Torres RN RN mt2 Corrections: (The following items were deleted from the chart) 03:07 02:28 CORONAVIRUS+[email or web address] ordered. EDMS EDMS 04:37 04:08 Hospitalization Ordered by Omar Mcguire for Observation. Preliminary diagnosis tl1 is CHF Exacerbation. Bed requested for Telemetry/MedSurg (observation). Status is Observation. Condition is Stable. Problem is an acute exacerbation. Symptoms have improved. [facility] 05:31 04:37 01/23/2020 04:08 Hospitalization Ordered by Omar Mcguire for Observation. mt2 Preliminary diagnosis is CHF Exacerbation. Bed requested for Telemetry/MedSurg (observation). Status is Observation. Condition is Stable. Problem is an acute exacerbation. Symptoms have improved. tl1
[2020-01-23 04:40] LABS: Blood Morphology Comment NOTED (NOT SEEN); Ovalocytes 2+; Platelet Estimate ADEQ
--- NOTE | 2020-01-23 04:42 | P.HP ---
Certification for Inpatient With expected LOS: >2 Midnights Patient will require the following post-hospital care: None Practitioner: I am a practitioner with admitting privileges, knowledge of patient current condition, hospital course, and medical plan of care. Services: Services provided to patient in accordance with Admission requirements found in Title 42 Section 412.3 of the Code of Federal Regulations <Levon Heart - Last Filed: 01/23/20 04:36> Patient History Date of Service: 01/23/20 Reason for admission: CHF with acute exacerbation/shortness of breath History of Present Illness: 79-year-old female with a past medical history of chronic atrial fibrillation on anticoagulation therapy, CVA, hip fracture, hypothyroidism, essential hyp ertension and a pacemaker presents to the emergency room sent by the [facility] with complaints of worsening shortness of breath and low oxygen saturations. Daughter bedside. Daughter states the patient has been in the intermediate due to a fractured hip. She has been undergoing rehabilitation but has not done well. States that nursing staff noticed the patient's oxygen saturations were down into the 70s. She has had more difficulty with breathing over the past 2 days. She has had several Covid tests and are negative. In the ER her Covid test was negative. Patient has a history of atrial fibrillation on Eliquis. She has also recently recovered from pneumonia approximately a month and a half ago. She was in her normal state of health 3 days ago and progressively had more difficulty with breathing over the past 48 hr. In the emergency room patient is alert and oriented x3. She is pleasant and cooperative. She has limited mobility and is mostly bed ridden for the past 6-8 months. [place] [address]. She is requiring oxygen support at 2 L nasal cannula to maintain her oxygen levels at 93%. Rest of blood work is fairly unremarkable. Chest x-ray shows an enlarged heart. Patient will be admitted and further evaluated. Home medications list reviewed: No - Past Medical/Surgical History Diabetic: No -: Chronic atrial fibrillation -: History of CVA -: History of hip fracture -: Essential hypertension -: Hypothyroidism -: Cardiac pacemaker -: Hip fracture repair Psychosocial/ Personal History: Current resident of [facility] - Family History Family History: Reviewed- Non-Contributory - Social History Smoking Status: Never smoker Alcohol use: No CD- Drugs: No Caffeine use: No Place of Residence: Home <Levon Heart - Last Filed: 01/23/20 04:36> Date of Service: 01/23/20 <Jd Giordano - Last Filed: 01/23/20 15:37> Allergies codeine Allergy (Verified 09/04/19 09:22) Rash Penicillins Allergy (Verified 09/04/19 09:22) Rash Sulfa (Sulfonamide Antibiotics) Allergy (Verified 09/04/19 09:22) Rash Home Medications: Amiodarone HCl 100 mg PO DAILY 09/04/19 Amlodipine Besylate 5 mg PO DAILY 09/04/19 Apixaban [Eliquis] 1 tab PO BID 09/04/19 Arginine/Ascorbate Sod/[place] AC [Arginaid Powder] 1 packet PO DAILY 09/04/19 Ascorbic Acid 1 tab PO DAILY 09/04/19 Benzocaine/Menthol [Cepacol Sore Throat Lozenge] 1 tab PO Q4H PRN 09/04/19 Calcium Carbonate/Vitamin D3 [Calcium 600-Vit D3 400 Tablet] 1 tab PO DAILY 09/04/19 Cyanocobalamin [Vitamin B-12*] 1 tab PO DAILY 09/04/19 Gabapentin 1 tab PO TID 09/04/19 Loratadine 1 tab PO DAILY 09/04/19 Magnesium Oxide [Magnesium] 400 mg PO DAILY 09/04/19 Metoprolol Succinate 12.5 mg PO BID 09/04/19 Montelukast [Singulair*] 10 mg PO DAILY 09/04/19 Multivitamin 1 tab PO DAILY 09/04/19 Omeprazole 40 mg PO DAILY 09/04/19 Ondansetron [Zofran (Odt)*] 4 mg PO Q8H PRN 09/04/19 Polyethylene Glycol 3350 [Miralax] 17 gm PO DAILY PRN 09/04/19 Sennosides [Senna] 1 cap PO DAILY PRN 09/04/19 Simethicone [Mylicon*] 1 tab PO Q12H PRN 09/04/19 Simvastatin 40 mg PO DAILY 09/04/19 Zinc Sulfate [Zinc Sulfate*] 220 mg PO DAILY 09/04/19 traMADol HCL [Ultram*] 1 tab PO Q4H PRN 09/04/19 Benzonatate [Tessalon Perle*] 1 cap PO Q8H PRN 01/23/20 Calcium Carbonate [Oscal] 500 mg PO BID 01/23/20 Furosemide [Lasix] 20 mg PO DAILY 01/23/20 Furosemide [Lasix] 40 mg PO DAILY 01/23/20 Guaifenesin/Dextromethorphan [Guaifenesin-Dm 100-10 mg/5 ml] 10 ml PO Q6H PRN 01/23/20 Levalbuterol HCl [Xopenex] 0.63 mg NEB Q6H PRN 01/23/20 Levothyroxine [Synthroid] 100 mcg PO DAILY 01/23/20 Potassium Chloride 10 meq PO DAILY 01/23/20 Potassium Chloride 20 meq PO DAILY 01/23/20 Tramadol HCl/Acetaminophen [Tramadol-Acetaminophn 37.5-325] 1 tab PO Q4H PRN 01/23/20 Review of Systems General: As per HPI Eyes: Unremarkable ENT: Unremarkable Respiratory: Cough, Shortness of Breath, As per HPI Cardiovascular: Unremarkable Gastrointestinal: Unremarkable Genitourinary: Unremarkable Musculoskeletal: Pedal edema, Other (Limited mobility) Integumentary: Unremarkable Neurological: As per HPI Lymphatics: Unremarkable <Levon Heart - Last Filed: 01/23/20 04:36> Physical Examination - Vital Signs Temperature: 97.9 F Blood Pressure: 117/91 Pulse: 82 Respirations: 22 Pulse Ox (%): 93 (RA) - Physical Exam General: Alert, In no apparent distress, Oriented x2 HEENT: Atraumatic, Normocephalic, PERRLA Neck: Supple, Other (Trachea midline) Respiratory: Diminished, Crackles/rales Cardiovascular: Normal pulses, Regular rate/rhythm, Edema Capillary refill: <2 Seconds Gastrointestinal: Normal bowel sounds, Soft and benign, Non-distended Musculoskeletal: No clubbing, No contractures, No erythema, Swelling (Bilateral lower extremity) Integumentary: No rashes, No breakdown, No significant lesion Neurological: Normal speech, Normal tone, Other (Limited mobility), Abnormal gait - Studies Laboratory Data (last 24 hrs) 01/23/20 02:12: PT 26.6 H, INR 2.29 01/23/20 02:12: Magnesium 2.2, Total Bilirubin 0.7, AST 12 L, ALT 8 L, Alkaline Phosphatase 99 01/23/20 02:12: Sodium 142, Potassium 3.8, BUN 31 H, Creatinine 1.03, Glucose 125 H 01/23/20 02:12: WBC 8.2, Hgb 9.5 L, Hct 29.1 L, Plt Count 176 Microbiology Data (last 24 hrs): 01/23/20 02:33 Nasopharnyx Influenza Type A Antigen Screen - Final 01/23/20 02:33 Nasopharnyx Influenza Type B Antigen Screen - Final 01/23/20 02:33 Throat Group A Streptococcus Rapid Screen - Final <Levon Heart - Last Filed: 01/23/20 04:36> - Studies Laboratory Data (last 24 hrs) 01/23/20 02:12: PT 26.6 H, INR 2.29 01/23/20 02:12: Magnesium 2.2, Total Bilirubin 0.7, AST 12 L, ALT 8 L, Alkaline Phosphatase 99 01/23/20 02:12: Sodium 142, Potassium 3.8, BUN 31 H, Creatinine 1.03, Glucose 125 H 01/23/20 02:12: WBC 8.2, Hgb 9.5 L, Hct 29.1 L, Plt Count 176 Microbiology Data (last 24 hrs): 01/23/20 02:33 Nasopharnyx Influenza Type A Antigen Screen - Final 01/23/20 02:33 Nasopharnyx Influenza Type B Antigen Screen - Final 01/23/20 02:33 Throat Group A Streptococcus Rapid Screen - Final <Jd Giordano - Last Filed: 01/23/20 15:37> Assessment and Plan - Plan Impression: Congestive heart failure with acute exacerbation: Chronic atrial fibrillation with history of cardiac pacemaker: Acute hypoxic respiratory failure: Essential hypertension: Hypothyroidism: Plan: Congestive heart failure with acute exacerbation: Patient given Lasix in the ER. Will continue gentle diurese with IV Lasix. Will order echocardiogram. Cardiology consult. Continuous telemetry. Chronic atrial fibrillation with history of cardiac pacemaker: Continuous telemetry. Will resume home medication of Eliquis 5 mg b.i.d. Monitor. Acute hypoxic respiratory failure: Continue O2 support as needed. Patient does not use home oxygen at the intermediate. Essential hypertension: Will resume all medications once verified. Monitor blood pressure. Hypothyroidism: Will resume all medications once verified. Discharge Plan: [facility] - Advance Directives Does patient have a Living Will: No Does patient have a Durable POA for Healthcare: No - Code Status/Comfort Care Code Status Assessed: Yes Time Spent Managing Pts Care (In Minutes): 55 <Levon Heart - Last Filed: 01/23/20 04:36> - Problems (Diagnosis) (1) Acute exacerbation of CHF (congestive heart failure) Current Visit: Yes Status: Acute (2) Pleural effusion, bilateral Current Visit: Yes Status: Acute (3) Respiratory failure Current Visit: Yes Status: Acute Qualifiers: Chronicity: acute Respiratory failure complication: hypoxia Qualified Code(s): J96.01 - Acute respiratory failure with hypoxia (4) H/O cardiac pacemaker Current Visit: Yes Status: Acute (5) H/O atrial fibrillation without current medication Current Visit: Yes Status: Acute (6) H/O: CVA (cerebrovascular accident) Current Visit: Yes Status: Acute <Jd Giordano - Last Filed: 01/23/20 15:37> Date of Service: 01/23/20 Chart reviewed and agree with above findings Subjective Date of Service: 01/23/20 Patient 79-year-old female who presented from intermediate with shortness of breath. Patient respiratory status has worsened according to the intermediate staff over the last few days. Patient was sent into the emergency room for further evaluation. Review of Systems is unable to be obtained Physical Examination - Vital Signs Reviewed - Physical Exam General: Confused Respiratory: Diminished, Crackles/rales Cardiovascular: Regular rate/rhythm, Normal S1 S2, Systolic murmur Gastrointestinal: Normal bowel sounds, Soft and benign, Non-distended Musculoskeletal: No clubbing, Swelling Neurological: Normal strength at 5/5 x4 extr, Normal tone, Sensation intact, Cranial nerves 3-12 intact Assessment & Plan - Problems (Diagnosis) (1) Acute exacerbation of CHF (congestive heart failure) Current Visit: Yes Status: Acute (2) Pleural effusion, bilateral Current Visit: Yes Status: Acute (3) Respiratory failure Current Visit: Yes Status: Acute Qualifiers: Chronicity: acute Respiratory failure complication: hypoxia Qualified Code(s): J96.01 - Acute respiratory failure with hypoxia (4) H/O cardiac pacemaker Current Visit: Yes Status: Acute (5) H/O atrial fibrillation without current medication Current Visit: Yes Status: Acute (6) H/O: CVA (cerebrovascular accident) Current Visit: Yes Status: Acute - Plan 1. Echocardiogram 2. Continue to diurese the patient aggressively. Patient also hypoalbuminemia. We will monitor dietary status 3. Continue with amiodarone 4. Cardiology consultation and Pulmonary consultation 5. Aggressive diuresis 6. Strict I's and O's 7. Repeat CXR 8. Daily weights 9. BIPAP support - Code Status/Comfort Care Code Status Assessed: Yes Code Status: Full Code <Jd Giordano - Last Filed: 01/23/20 15:37>
--- NOTE | 2020-01-23 05:55 | EKG ---
Test Date: 2020-01-23 Test Time: 02:14:15 Editor Department: [facility] MEASUREMENT RESULTS: Intervals: Rate: 101 MN: QRSD: 102 QT: 374 QTc: 484 [place]: P: MN: QRS: -15 T: -36 INTERPRETIVE STATEMENTS: Atrial fibrillation with rapid ventricular response Anterolateral infarct, age undetermined Abnormal ECG No previous ECG available for comparison Electronically Signed On 01-23-20 05:55:12 CDT by Jhon Sommer
[2020-01-23] MEDS ORDERED: POLYETHYL GLY 3350 17 GM/DOSE PO PRN (06:43)
[2020-01-23] MEDS ORDERED: TRAMADOL HCL 50 MG TAB PO PRN (06:43)
[2020-01-23] MEDS ORDERED: ONDANSETRON 4 MG (ODT) TAB PO PRN (06:43)
[2020-01-23] MEDS ORDERED: METHYLPRED NA SUC 60 MG in NA CHLORIDE 0.9% 100 ML IV ONE (07:30)
[2020-01-23] MEDS ORDERED: METHYLPREDNISOLONE 125 MG INJ IV SCH ×2 (07:30→16:00)
[2020-01-23] MEDS ORDERED: KCL 20 MEQ/100 mL IVPB 20 MEQ/100 ML BAG IV SCH (08:00)
[2020-01-23] MEDS: ALBUTEROL 2.5 MG/3 ML NEB SOL NEB SCH ×3 (08:15→20:45)
[2020-01-23] MEDS: IPRATROPIUM BROM 0.5MG/2.5ML NEB SCH ×3 (08:15→20:45)
[2020-01-23 08:29] VITALS: BMI 28.4
[2020-01-23] MEDS ORDERED: APIXABAN 5 MG TABLET PO SCH (09:00)
[2020-01-23] MEDS ORDERED: ATORVASTATIN 20 MG TAB PO SCH (09:00)
[2020-01-23] MEDS: AMIODARONE HCL 200 MG TAB PO SCH ×2 (09:00→13:12)
[2020-01-23] MEDS: SENOSIDES 8.6 MG TAB PO SCH (09:00)
[2020-01-23] MEDS ORDERED: LEVOTHYROXINE SOD 0.125 MG TAB PO SCH (09:00)
[2020-01-23] MEDS: AMLODIPINE 5 MG TAB PO SCH (09:00)
--- NOTE | 2020-01-23 10:04 | CON ---
Date of Consultation: 01/23/2020 Reason For Consultation: Congestive heart failure. History Of Present Illness: Ms. Crisostomo is an 79-year-old woman who has a very complicated past medic al history. Ms. Crisostomo recently had a hip fracture. She has a history of paroxysmal atrial fibrilla tion, CVA. She is status post pacemaker, she has dyslipidemia, hypertension, dementia, neuropathy, g astroesophageal reflux disease, congestive heart failure, hypothyroidism, and came in with dyspnea on exertion, PND, orthopnea, pedal edema. No palpitation. No syncope. Denied chest pain, nausea, vom iting, diaphoresis. She denied any fever or chills or cough. Allergies: SHE IS ALLERGIC TO CODEINE, PENICILLIN, AND SULFA. Review of Systems: Negative. Social History: Negative. Family History: Negative. Medications: At home include Neurontin, amiodarone, magnesium, Norvasc, Eliquis, thyroid medicine, Z ocor, metoprolol, Prilosec, and Singulair. Physical Examination: General: She was in no acute distress. She was confused, alert and oriented to name only. Complain ing of back pain. Did not have any shortness of breath. Vital Signs: Stable. She was in a paced rhythm, afebrile. HEENT: Negative. Neck: Supple. No bruit, lymphadenopathy, JVD, or thyromegaly. Chest: Reveals some crackles at the bases bilaterally. Cardiac: Exam revealed a paced rhythm. No murmurs, gallops, or rubs. Abdomen: Obese, but benign. Extremities: Revealed 1+ edema bilaterally. Skin: Dry and intact. Neurologic: She was alert and oriented x1. Pulses were present distally bilaterally. Impression And Plan: 1.Acute on chronic congestive heart failure. Echocardiogram is pending. IV Lasix is in order. Her medication otherwise needs to be continued, specially the metoprolol. We will see what her ejection fraction is. She may be a candidate for an JUAN inhibitor. 2.Paroxysmal atrial fibrillation and paced rhythm on amiodarone and Eliquis. We will continue that. 3.History of cerebrovascular accident. 4.Status post pacemaker. 5.Dyslipidemia, well controlled. 6.Hypertension, well controlled. 7.Chronic dementia. 8.Neuropathy. 9.Gastroesophageal reflux disease. 10.Hypothyroidism. 11.Recent hip fracture. 12.Elevated INR secondary to Eliquis. 13.Elevated troponin and BNP secondary to congestive heart failure. 14.Chronic anemia. I will continue her medical regimen. Diurese her. Check her echo. Continue her Eliquis and amiodar one. No need for any further intervention or any further cardiac workup besides the echo at this poi nt. I will continue to follow her. AUSTEN/UBALDO Voice ID: [id number] Report ID: [id number]
[2020-01-23 10:20] LABS: Urine Appearance CLEAR; Urine Bilirubin NEGATIVE (NEG); Urine Blood TRACE (NEG); Urine Color YELLOW; Urine Glucose NEGATIVE (NEG); Urine Protein NEGATIVE (NEG); Urine Urobilinogen 0.2 mg/dL (0.2-1.0)
[2020-01-23 10:21] LABS: Urine Microscopic Reflex NO UMIC
[2020-01-23] MEDS: FUROSEMIDE 40 MG/4 ML VIAL IV SCH ×2 (10:22→18:26)
[2020-01-23] MEDS: ENOXAPARIN 80 MG/0.8 ML SQ SCH ×2 (10:22→23:51)
[2020-01-23] MEDS ORDERED: NA CHLORIDE 0.9% 250 ML ONE (10:41)
[2020-01-23 11:33] LABS: C-Reactive Protein 95.6 mg/L (<3.00); Ferritin 97.4 ng/mL (8-388); Potassium 3.5 mmol/L (3.5-5.1)
--- NOTE | 2020-01-23 12:03 | P.CNS ---
Date of Consult: 01/23/20 Chief Complaint: CHF with acute exacerbation/shortness of breath History of Present Illness: Patient is 79 years of age with a history of chronic AFib the triple medical problems presents from [facility] with shortness of breath and low oxygen saturation patient is nonverbal at this present moment on non-rebreather as been in alf due to fractured hip and was developing low oxygen saturations recent history of pneumonia become recently become progressively worse Allergies codeine Allergy (Verified 09/04/19 09:22) Rash Penicillins Allergy (Verified 09/04/19 09:22) Rash Sulfa (Sulfonamide Antibiotics) Allergy (Verified 09/04/19 09:22) Rash Home Medications: Amiodarone HCl 100 mg PO DAILY 09/04/19 Amlodipine Besylate 5 mg PO DAILY 09/04/19 Apixaban [Eliquis] 1 tab PO BID 09/04/19 Arginine/Ascorbate Sod/[place] AC [Arginaid Powder] 1 packet PO DAILY 09/04/19 Ascorbic Acid 1 tab PO DAILY 09/04/19 Benzocaine/Menthol [Cepacol Sore Throat Lozenge] 1 tab PO Q4H PRN 09/04/19 Calcium Carbonate/Vitamin D3 [Calcium 600-Vit D3 400 Tablet] 1 tab PO DAILY 09/04/19 Cyanocobalamin [Vitamin B-12*] 1 tab PO DAILY 09/04/19 Gabapentin 1 tab PO TID 09/04/19 Loratadine 1 tab PO DAILY 09/04/19 Magnesium Oxide [Magnesium] 400 mg PO DAILY 09/04/19 Metoprolol Succinate 12.5 mg PO BID 09/04/19 Montelukast [Singulair*] 10 mg PO DAILY 09/04/19 Multivitamin 1 tab PO DAILY 09/04/19 Omeprazole 40 mg PO DAILY 09/04/19 Ondansetron [Zofran (Odt)*] 4 mg PO Q8H PRN 09/04/19 Polyethylene Glycol 3350 [Miralax] 17 gm PO DAILY PRN 09/04/19 Sennosides [Senna] 1 cap PO DAILY PRN 09/04/19 Simethicone [Mylicon*] 1 tab PO Q12H PRN 09/04/19 Simvastatin 40 mg PO DAILY 09/04/19 Zinc Sulfate [Zinc Sulfate*] 220 mg PO DAILY 09/04/19 traMADol HCL [Ultram*] 1 tab PO Q4H PRN 09/04/19 Benzonatate [Tessalon Perle*] 1 cap PO Q8H PRN 01/23/20 Calcium Carbonate [Oscal] 500 mg PO BID 01/23/20 Furosemide [Lasix] 20 mg PO DAILY 01/23/20 Furosemide [Lasix] 40 mg PO DAILY 01/23/20 Guaifenesin/Dextromethorphan [Guaifenesin-Dm 100-10 mg/5 ml] 10 ml PO Q6H PRN 01/23/20 Levalbuterol HCl [Xopenex] 0.63 mg NEB Q6H PRN 01/23/20 Levothyroxine [Synthroid] 100 mcg PO DAILY 01/23/20 Potassium Chloride 10 meq PO DAILY 01/23/20 Potassium Chloride 20 meq PO DAILY 01/23/20 Tramadol HCl/Acetaminophen [Tramadol-Acetaminophn 37.5-325] 1 tab PO Q4H PRN 01/23/20 - Past Medical/Surgical History Diabetic: No -: Chronic atrial fibrillation -: History of CVA -: History of hip fracture -: Essential hypertension -: Hypothyroidism -: Cardiac pacemaker -: Hip fracture repair Psychosocial/ Personal History: Current resident of [facility] - Social History Smoking Status: Unknown if ever smoked Alcohol use: No CD- Drugs: No Caffeine use: No Place of Residence: Home Review of Systems is unable to be obtained Physical Examination Temp Pulse Resp BP Pulse Ox 97.8 F 84 20 128/76 96 01/23/20 08:00 01/23/20 10:22 01/23/20 08:00 01/23/20 10:22 01/23/20 08:00 General: Unresponsive Respiratory: Clear to auscultation bilaterally Cardiovascular: No edema, Normal S1 S2, Irregular heart rate/rhythm Laboratory Data (last 24 hrs) 01/23/20 02:12: PT 26.6 H, INR 2.29 01/23/20 02:12: Magnesium 2.2, Total Bilirubin 0.7, AST 12 L, ALT 8 L, Alkaline Phosphatase 99 01/23/20 02:12: Sodium 142, Potassium 3.8, BUN 31 H, Creatinine 1.03, Glucose 125 H 01/23/20 02:12: WBC 8.2, Hgb 9.5 L, Hct 29.1 L, Plt Count 176 - Problems (1) Respiratory failure Current Visit: Yes Status: Acute Plan: Patient is 79 years of age admitted with hypoxemia history of AFib cardiomegaly patient's BNP is elevated chest x-ray shows cardiomegaly bilateral interstitial changes white count is normal patient is anti coagulated continue with diuretic echocardiogram pending check arterial blood gases tsh level hemodynamically stable Qualifiers: Chronicity: acute Respiratory failure complication: hypoxia Qualified Code(s): J96.01 - Acute respiratory failure with hypoxia
--- NOTE | 2020-01-23 13:19 | RAD REPORT ---
EXAM DESCRIPTION: CT - Chest Angio - 01/23/2020 12:52 pm CLINICAL HISTORY: HYPOXEMIA; R/O PE COMPARISON: Chest Single View dated 01/23/2020 TECHNIQUE: Dynamically enhanced 3 mm thick images of the chest were obtained during administration o f approximately 150mL Isovue 370 IV contrast. Coronal and oblique MIP reconstruction images were gene rated and reviewed. Exam utilizes a protocol to evaluate the pulmonary arterial tree. All CT scans are performed using dose optimization technique as appropriate and may include automated exposure control or mA/KV adjustment according to patient size. FINDINGS: No pulmonary emboli are identified. Aorta assessment is limited in the absence of contrast on a PE protocol study. Dense calcifications a re present. No aneurysm or displaced calcifications. Cardiomegaly is present. No pericardial thickeni ng or effusion. Large bilateral pleural effusions are present. Complete right lower lobe atelectasis is present with near complete left lower lobe atelectasis. There is partial right middle and right upper lobe atelect asis. Prominent interstitial markings noted. Focal consolidation or mass not identified. No pneumotho rax. No mediastinal or hilar suspicious masses. No chest wall masses or abnormal axillary lymphadenopathy. IMPRESSION: No pulmonary emboli identified. Large bilateral pleural effusions with complete right lower lobe and near complete left lower lobe at electasis. Partial right middle and right lower lobe atelectasis present. No mass or infiltrate of the lung parenchyma. Cardiomegaly without pericardial effusion.
--- NOTE | 2020-01-23 15:26 | RAD REPORT ---
EXAM DESCRIPTION: RAD - Chest Single View - 01/23/2020 3:13 am CLINICAL HISTORY: LOW SPO02 TECHNIQUE: Single frontal view of the chest is submitted. COMPARISON: None available for comparison FINDINGS: Heart: The cardiothoracic silhouette is enlarged. Left chest wall dual-lead pacer. Lungs: Central pulmonary vascular and interstitial prominence and hazy bilateral perihilar opacities. Mediastinum: Thoracic aortic atherosclerosis. Pleura: Blunting of the costophrenic angles bilaterally. Bones: Intact Upper abdomen: Unremarkable IMPRESSION: Findings which may be related to pulmonary congestion including possible small bilateral pleural effusions. Superimposed infection not excluded. Electronically signed by: Jannette Chowdhury MD 01/23/2020 3:21 AM CDT Due to temporary technical issues with the PACS/Fluency reporting system, reports are being signed by the in house radiologist without review as a courtesy to ensure prompt reporting. The interpreting r adiologist is fully responsible for the content of the report.
--- NOTE | 2020-01-23 15:35 | P.PN ---
Subjective Date of Service: 01/23/20 Patient is still in respiratory distress. Ordered a CT of the chest. Patient elevated D-dimer. Appears to have CHF exacerbation. Echocardiogram pending. Review of Systems is unable to be obtained Physical Examination - Vital Signs Temperature: 97 F Blood Pressure: 119/65 Pulse: 81 Respirations: 20 Pulse Ox (%): 97 - Physical Exam General: Confused Respiratory: Diminished, Crackles/rales Cardiovascular: Regular rate/rhythm, Normal S1 S2, Systolic murmur Gastrointestinal: Normal bowel sounds, Soft and benign, Non-distended Musculoskeletal: No clubbing, Swelling Neurological: Normal strength at 5/5 x4 extr, Normal tone, Sensation intact, Cranial nerves 3-12 intact - Studies Laboratory Data (last 24 hrs) 01/23/20 02:12: PT 26.6 H, INR 2.29 01/23/20 02:12: Magnesium 2.2, Total Bilirubin 0.7, AST 12 L, ALT 8 L, Alkaline Phosphatase 99 01/23/20 02:12: Sodium 142, Potassium 3.8, BUN 31 H, Creatinine 1.03, Glucose 125 H 01/23/20 02:12: WBC 8.2, Hgb 9.5 L, Hct 29.1 L, Plt Count 176 Microbiology Data (last 24 hrs): 01/23/20 02:33 Nasopharnyx Influenza Type A Antigen Screen - Final 01/23/20 02:33 Nasopharnyx Influenza Type B Antigen Screen - Final 01/23/20 02:33 Throat Group A Streptococcus Rapid Screen - Final Assessment & Plan - Problems (Diagnosis) (1) Acute exacerbation of CHF (congestive heart failure) Current Visit: Yes Status: Acute (2) Pleural effusion, bilateral Current Visit: Yes Status: Acute (3) Respiratory failure Current Visit: Yes Status: Acute Qualifiers: Chronicity: acute Respiratory failure complication: hypoxia Qualified Code(s): J96.01 - Acute respiratory failure with hypoxia (4) H/O cardiac pacemaker Current Visit: Yes Status: Acute (5) H/O atrial fibrillation without current medication Current Visit: Yes Status: Acute (6) H/O: CVA (cerebrovascular accident) Current Visit: Yes Status: Acute - Plan 1. Echocardiogram 2. Continue to diurese the patient aggressively. Patient also hypoalbuminemia. We will monitor dietary status 3. Continue with amiodarone 4. Cardiology consultation and Pulmonary consultation 5. Aggressive diuresis 6. Strict I's and O's 7. Repeat CXR 8. Daily weights 9. BIPAP support Discharge Plan: Home Plan to discharge in: Greater than 2 days - Advance Directives Does patient have a Living Will: No Does patient have a Durable POA for Healthcare: No - Code Status/Comfort Care Code Status Assessed: Yes Code Status: Full Code Critical Care: Yes Time Spent Managing PTS Care (In Minutes): 35
[2020-01-23] MEDS ORDERED: FUROSEMIDE 40 MG/4 ML VIAL IV ONE (16:00)
[2020-01-23] MEDS ORDERED: ALBUMIN HUMAN 25% 100 ML IV ONE (16:00)
[2020-01-23 17:22] LABS: Arterial Blood Carboxyhemoglob 1.9 % (0-1.5); Blood Gas Oxyhemoglobin 88.4 % (94-97)
[2020-01-23] MEDS: ATORVASTATIN 20 MG TAB PO SCH (21:00)
[2020-01-23] MEDS: JUVEN PACKET PO SCH (21:00)
[2020-01-24] MEDS: ALBUTEROL 2.5 MG/3 ML NEB SOL NEB SCH ×4 (01:50→20:00)
[2020-01-24] MEDS: IPRATROPIUM BROM 0.5MG/2.5ML NEB SCH ×4 (01:50→20:00)
[2020-01-24] MEDS: PANTOPRAZOLE 40MG TABLET PO SCH (06:14)
[2020-01-24] MEDS: LEVOTHYROXINE SOD 0.125 MG TAB PO SCH (06:14)
[2020-01-24 06:28] LABS: Absolute Lymphocytes (CBC) 0.5 K/uL (0.7-4.9); Hematocrit 26.5 % (36.0-45.0); Lymphocytes % 13.1 % (15.3-44.8); RBC Red Blood Cell Count 3.43 M/uL (3.86-4.86)
[2020-01-24 06:39] LABS: Magnesium 2.4 mg/dL (1.8-2.4); Potassium 3.7 mmol/L (3.5-5.1)
[2020-01-24] MEDS: JUVEN PACKET PO SCH ×2 (09:00→21:00)
--- NOTE | 2020-01-24 09:42 | ECHO ---
HEIGHT: 5 ft 5 in WEIGHT: 170 lb 14.4 oz DATE OF STUDY: 01/23/[address]: Levon Heart 2-DIMENSIONAL: YES M.MODE: YES DOPPLER: YES COLOR FLOW: YES TDS: NO PORTABLE: NO DEFINITY: NO BUBBLE STUDY: NO DIAGNOSIS: CONGESTIVE HEART FAILURE CARDIAC HISTORY: CATHERIZATION: SURGERY: PROSTHETIC VALVE: PACEMAKER: MEASUREMENTS (cm) DIASTOLIC (NORMALS) SYSTOLIC (NORMALS) IVSd 0.9 (0.6-1.2) LA Diam 5.1 (1.9-4.0) LVEF 61% LVIDd 4.8 (3.5-5.7) LVIDs 3.3 (2.0-3.5) %FS 33% LVPWd 0.8 (0.6-1.2) Ao Diam 3.1 (2.0-3.7) 2 DIMENSIONAL ASSESSMENT: RIGHT ATRIUM: NORMAL LEFT ATRIUM: ENLARGED RIGHT VENTRICLE: NORMAL LEFT VENTRICLE: NORMAL TRICUSPID VALVE: NORMAL MITRAL VALVE: MITRAL ANNULAR CALCIFICATION PULMONIC VALVE: NORMAL AORTIC VALVE: MODERATE AORTIC STENOSIS PERICARDIAL EFFUSION: NONE AORTIC ROOT: NORMAL LEFT VENTRICULAR WALL MOTION: NORMAL DOPPLER/COLOR FLOW: DIASTOLIC DYSFUNCTION. COMMENTS: NORMAL LEFT VENTRICULAR EJECTION FRACTION 55-60%. DIASTOLIC DYSFUNCTION. RIGHT ATRIAL PRESSURE >20 mmHg. AT LEAST MODERATE AORTIC STENOSIS. RECOMMEND FOCUSED STUDY TO BETTER EVALUATE GRADIENT. MODERATE AORTIC INSUFFICENCY. LEFT ATRIAL ENLARGEMENT. TECHNOLOGIST: Desiree MCCALLUM
[2020-01-24] MEDS ORDERED: POTASSIUM CL SA 10 MEQ TAB PO ONE (09:43)
[2020-01-24] MEDS: FUROSEMIDE 40 MG/4 ML VIAL IV SCH (09:46)
[2020-01-24] MEDS: SENOSIDES 8.6 MG TAB PO SCH (09:46)
[2020-01-24] MEDS: AMLODIPINE 5 MG TAB PO SCH (09:46)
[2020-01-24] MEDS: AMIODARONE HCL 200 MG TAB PO SCH (09:47)
[2020-01-24] MEDS: ENOXAPARIN 80 MG/0.8 ML SQ SCH ×2 (09:47→20:59)
--- NOTE | 2020-01-24 11:46 | P.PN ---
Subjective Date of Service: 01/24/20 Chief Complaint: CHF with acute exacerbation/shortness of breath Subjective: Improving (Patient is much better today she is very alert responsive cooperative no new complaints is on IV Lasix drip nasal cannula oxygen) Review of Systems General: Weakness Respiratory: Shortness of Breath Physical Examination - Vital Signs Temperature: 96.9 F Blood Pressure: 154/62 Pulse: 68 Respirations: 23 Pulse Ox (%): 98 - Physical Exam General: Alert, Oriented x2, Cooperative Neck: Supple Respiratory: Clear to auscultation bilaterally Cardiovascular: No edema, Irregular heart rate/rhythm Assessment & Plan - Problems (Diagnosis) (1) Respiratory failure Current Visit: Yes Status: Acute Plan: Patient admitted with respiratory failure is doing much better of order room-air blood gases labs reviewed mildly hypernatremic echocardiogram shows diastolic dysfunction Dc Blanco catheter change to p.o. Lasix and low-dose spironolactone possible discharge in the morning Qualifiers: Chronicity: acute Respiratory failure complication: hypoxia Qualified Code(s): J96.01 - Acute respiratory failure with hypoxia Discharge Plan: Home Plan to discharge in: 24 Hours
[2020-01-24] MEDS ORDERED: FUROSEMIDE 40 MG/4 ML VIAL IV SCH (12:00)
[2020-01-24 14:21] LABS: Arterial Blood Carboxyhemoglob 1.9 % (0-1.5); Blood Gas Oxyhemoglobin 85.7 % (94-97); Blood O2 Saturation 88.3 % (92-98.5)
[2020-01-24] MEDS ORDERED: LORazepam 2 MG/ML VIAL IV ONE (17:00)
[2020-01-24] MEDS ORDERED: LORAZEPAM 0.5 MG TABLET PO ONE (20:21)
[2020-01-24] MEDS: BENZONATATE 100 MG CAP PO PRN (20:59)
[2020-01-24] MEDS: ATORVASTATIN 20 MG TAB PO SCH (20:59)
[2020-01-25] MEDS: IPRATROPIUM BROM 0.5MG/2.5ML NEB SCH ×4 (02:35→19:42)
[2020-01-25] MEDS: ALBUTEROL 2.5 MG/3 ML NEB SOL NEB SCH ×4 (02:35→19:42)
[2020-01-25] MEDS: LEVOTHYROXINE SOD 0.125 MG TAB PO SCH (05:40)
[2020-01-25] MEDS: PANTOPRAZOLE 40MG TABLET PO SCH (05:40)
[2020-01-25] MEDS: BENZONATATE 100 MG CAP PO PRN ×2 (05:41→12:31)
[2020-01-25 05:53] LABS: Potassium 3.3 mmol/L (3.5-5.1)
[2020-01-25] MEDS ORDERED: POTASSIUM CL SA 10 MEQ TAB PO ONE ×2 (09:00→17:00)
[2020-01-25] MEDS: AMIODARONE HCL 200 MG TAB PO SCH (09:19)
[2020-01-25] MEDS: SENOSIDES 8.6 MG TAB PO SCH (09:20)
[2020-01-25] MEDS: AMLODIPINE 5 MG TAB PO SCH (09:20)
[2020-01-25] MEDS: SPIRONOLACTONE 25 MG TABLET PO SCH (09:21)
[2020-01-25] MEDS: ENOXAPARIN 80 MG/0.8 ML SQ SCH ×2 (09:21→21:04)
[2020-01-25] MEDS: JUVEN PACKET PO SCH ×2 (09:22→21:04)
[2020-01-25] MEDS: FUROSEMIDE 40 MG TABLET PO SCH (09:24)
[2020-01-25] MEDS ORDERED: METHYLPREDNISOLONE 125 MG INJ IV ONE (14:43)
[2020-01-25] MEDS ORDERED: Levofloxacin 250mg IV 250 MG/50 ML BAG IV SCH (16:00)
--- NOTE | 2020-01-25 20:46 | RAD REPORT ---
EXAM DESCRIPTION: US - Chest - 01/25/2020 7:57 pm FINDINGS: Bilateral chest sonographic evaluation of pleural effusions performed. Exam is correlated with January 22 CT chest. Small to moderate-sized left pleural effusion is present along the posterior aspect of the chest jaswindre uring approximately 2 cm in thickness. Pleural effusion measured larger on the right moderate in size. Atelectatic right lower lobe is prese nt. This is approximately 2.5-3 cm and thickness. The pleural effusion extends along the length of th e chest primarily in the posterior and lateral position.
[2020-01-25] MEDS: ATORVASTATIN 20 MG TAB PO SCH (21:04)
[2020-01-26] MEDS: IPRATROPIUM BROM 0.5MG/2.5ML NEB SCH ×4 (02:37→23:45)
[2020-01-26] MEDS: ALBUTEROL 2.5 MG/3 ML NEB SOL NEB SCH ×4 (02:37→23:45)
[2020-01-26] MEDS: LEVOTHYROXINE SOD 0.125 MG TAB PO SCH (05:29)
[2020-01-26] MEDS: PANTOPRAZOLE 40MG TABLET PO SCH (05:29)
[2020-01-26] MEDS: FUROSEMIDE 40 MG TABLET PO SCH (09:17)
[2020-01-26] MEDS: SPIRONOLACTONE 25 MG TABLET PO SCH (09:18)
[2020-01-26] MEDS: AMLODIPINE 5 MG TAB PO SCH (09:19)
[2020-01-26] MEDS: SENOSIDES 8.6 MG TAB PO SCH (09:19)
[2020-01-26] MEDS: JUVEN PACKET PO SCH ×2 (09:20→21:00)
[2020-01-26] MEDS: AMIODARONE HCL 200 MG TAB PO SCH (09:23)
[2020-01-26] MEDS: ENOXAPARIN 80 MG/0.8 ML SQ SCH ×2 (09:24→21:00)
--- NOTE | 2020-01-26 12:03 | P.PN ---
Subjective Date of Service: 01/24/20 Patient had positive blood cultures for Enterococcus. Started on Levaquin; will monitor closely on telemetry as patient also on Amiodarone. Patient allergic to penicillin. Resistant to cefazolin. Patient also remains short of breat; patient with pleural effusion and no source of bactermia. Will repeat Ua with micro; repeat blood cultures. Will repeat echo; also concerning for empyema as patient with bilateral pleural effusion; will see if radiology can do a right US guided thoracentesis; pulmonary follo wing patient as well Review of Systems 10-point ROS is otherwise unremarkable Physical Examination - Vital Signs Temperature: 97.9 F Blood Pressure: 116/59 Pulse: 82 Respirations: 18 Pulse Ox (%): 94 - Physical Exam General: Alert, In no apparent distress, Oriented x1, Demented, Confused Respiratory: Diminished, Crackles/rales, Expiratory wheezes Cardiovascular: Regular rate/rhythm, Normal S1 S2, No murmurs Gastrointestinal: Normal bowel sounds, Soft and benign, Non-distended, No tenderness Musculoskeletal: No clubbing, No swelling, No tenderness Neurological: Sensation intact, Cranial nerves 3-12 intact - Studies Microbiology Data (last 24 hrs): 01/23/20 02:12 Blood - Blood Aerobic Blood Culture - Final Enterococcus Faecalis 01/23/20 02:12 Blood - Blood Blood Culture Gram Stain - Final 01/23/20 02:12 Blood - Blood Anaerobic Blood Culture - Final Enterococcus Faecalis 01/23/20 02:12 Blood - Blood Gram Stain - Final 01/23/20 02:30 Blood - Blood Aerobic Blood Culture - Final Enterococcus Faecalis 01/23/20 02:30 Blood - Blood Blood Culture Gram Stain - Final 01/23/20 02:30 Blood - Blood Anaerobic Blood Culture - Final Enterococcus Faecalis 01/23/20 02:30 Blood - Blood Gram Stain - Final 01/23/20 02:33 Throat Culture & Sensitivity - Final Medications List Reviewed: Yes Assessment & Plan - Problems (Diagnosis) (1) Acute exacerbation of CHF (congestive heart failure) Current Visit: Yes Status: Acute (2) Pleural effusion, bilateral Current Visit: Yes Status: Acute (3) Respiratory failure Current Visit: Yes Status: Acute Qualifiers: Chronicity: acute Respiratory failure complication: hypoxia Qualified Code(s): J96.01 - Acute respiratory failure with hypoxia (4) H/O cardiac pacemaker Current Visit: Yes Status: Acute (5) H/O atrial fibrillation without current medication Current Visit: Yes Status: Acute (6) H/O: CVA (cerebrovascular accident) Current Visit: Yes Status: Acute - Plan 1. Echocardiogram pending 2. Continue to diurese. Patient also hypoalbuminemia. We will monitor dietary status 3. Continue with amiodarone 4. Cardiology consultation and Pulmonary consultation 5. Antibiotic choice limited with penicillin allergy; started on Levaquin; monitor QT on telemetry as patient is also on Amiodarone 6. Strict I's and O's 7. May need to repeat CXR 8. Daily weights 9. BIPAP support as needed Discharge Plan: Retirement Plan to discharge in: Greater than 2 days - Advance Directives Does patient have a Living Will: No Does patient have a Durable POA for Healthcare: No - Code Status/Comfort Care Code Status: Full Code Critical Care: No Time Spent Managing PTS Care (In Minutes): 35
--- NOTE | 2020-01-26 12:27 | RAD REPORT ---
EXAM DESCRIPTION: RAD - Chest Single View - 01/26/2020 12:21 pm CLINICAL HISTORY: SHORTNESS OF BREATH Chest pain. COMPARISON: Chest Single View dated 01/23/2020 FINDINGS: Portable technique limits examination quality. Small opacity in the right lung base probably represents a mild infiltrate common appears improved si nce comparative study. The heart is significantly enlarged with dual lead pacer device. Aortic athero sclerosis.
--- NOTE | 2020-01-26 12:29 | P.PN ---
Subjective Date of Service: 01/26/20 Patient still with some respiratory distress; respiratory therapy stated patient was using her abdominal muscles to breathe. So they decided to put her on BiPAP. Patient's O2 sats were 90% on 4 L. reviewed imaging studies and repeated chest x-ray. Patient has been diuresed extensively and does not need a thoracentesis; also with blood cultures revealing Enterococcus trying to identify source. So far other sources have been negative. At this time patient has improved through the day. Currently on 2 L nasal cannula and satting 95- 96%. Possible discharge home in the morning. Review of Systems is unable to be obtained Physical Examination - Vital Signs Temperature: 97.9 F Blood Pressure: 116/59 Pulse: 82 Respirations: 18 Pulse Ox (%): 94 - Physical Exam General: Alert, In no apparent distress, Oriented x1, Demented, Confused Respiratory: Clear to auscultation bilaterally, Normal air movement Cardiovascular: Regular rate/rhythm, Normal S1 S2, Systolic murmur Gastrointestinal: Normal bowel sounds, Soft and benign, Non-distended, No tenderness Musculoskeletal: No clubbing, No swelling, No tenderness Neurological: Normal speech, Normal tone, Sensation intact, Cranial nerves 3-12 intact Lymphatics: No axilla or inguinal lymphadenopathy - Studies Microbiology Data (last 24 hrs): 01/23/20 02:12 Blood - Blood Aerobic Blood Culture - Final Enterococcus Faecalis 01/23/20 02:12 Blood - Blood Blood Culture Gram Stain - Final 01/23/20 02:12 Blood - Blood Anaerobic Blood Culture - Final Enterococcus Faecalis 01/23/20 02:12 Blood - Blood Gram Stain - Final 01/23/20 02:30 Blood - Blood Aerobic Blood Culture - Final Enterococcus Faecalis 01/23/20 02:30 Blood - Blood Blood Culture Gram Stain - Final 01/23/20 02:30 Blood - Blood Anaerobic Blood Culture - Final Enterococcus Faecalis 01/23/20 02:30 Blood - Blood Gram Stain - Final 01/23/20 02:33 Throat Culture & Sensitivity - Final Medications List Reviewed: Yes Assessment & Plan - Problems (Diagnosis) (1) Bacteremia due to Enterococcus Current Visit: Yes Status: Acute (2) Acute exacerbation of CHF (congestive heart failure) Current Visit: Yes Status: Acute (3) Pleural effusion, bilateral Current Visit: Yes Status: Acute (4) Respiratory failure Current Visit: Yes Status: Acute Qualifiers: Chronicity: acute Respiratory failure complication: hypoxia Qualified Code(s): J96.01 - Acute respiratory failure with hypoxia (5) H/O cardiac pacemaker Current Visit: Yes Status: Acute (6) H/O atrial fibrillation without current medication Current Visit: Yes Status: Acute (7) H/O: CVA (cerebrovascular accident) Current Visit: Yes Status: Acute (8) Dementia Current Visit: Yes Status: Acute (9) Pleural effusion Current Visit: Yes Status: Acute - Plan 1. Echocardiogram no abnormalities 2. Continue to diurese. Monitor and get CXR today-no significant abnormalities. We will monitor dietary status as hypoalbuminemia 3. Continue with amiodarone 4. Cardiology consultation and Pulmonary consultation appreciated 5. Antibiotic choice limited with penicillin allergy; continue Levaquin; monitoring QT on telemetry as patient is also on Amiodarone; no significant abn ormalities noted. Do not want to give to large dose of levaquin at one time- however pharmacy changed order and gave 750mg today-I was not notified. Monitoring on telemetry. Repeat blood cultures pending 6. Strict I's and O's 7. Occasional delirium; especially at night; will need to get out of bed to chair 8. Daily weights 9. BIPAP resumed-patient was on 4-5 L and went up to BIPAP; will place on venti and wean down Discharge Plan: Detention Plan to discharge in: 24 Hours - Advance Directives Does patient have a Living Will: No Does patient have a Durable POA for Healthcare: No - Code Status/Comfort Care Code Status: Full Code Critical Care: No Time Spent Managing PTS Care (In Minutes): 35
[2020-01-26] MEDS: METHYLPREDNISOLONE 125 MG INJ IV SCH ×3 (12:32→23:44)
--- NOTE | 2020-01-26 12:40 | P.PN ---
Subjective Date of Service: 01/25/20 Patient still hypoxic; had positive blood cultures x 4 bottles; unable to identify a source. On Levaquin; monitoring closely. ECHO no vegetation on valves noted; Ua unremarkable. Review of Systems is unable to be obtained Physical Examination - Vital Signs Temperature: 97.9 F Blood Pressure: 116/59 Pulse: 82 Respirations: 18 Pulse Ox (%): 94 - Physical Exam General: Alert, Oriented x1, Demented, Confused Respiratory: Diminished, Crackles/rales Cardiovascular: Regular rate/rhythm, Normal S1 S2, No murmurs Gastrointestinal: Normal bowel sounds, Soft and benign, Non-distended, No tenderness Musculoskeletal: No clubbing, No swelling Neurological: Normal tone, Sensation intact, Cranial nerves 3-12 intact - Studies Microbiology Data (last 24 hrs): 01/23/20 02:12 Blood - Blood Aerobic Blood Culture - Final Enterococcus Faecalis 01/23/20 02:12 Blood - Blood Blood Culture Gram Stain - Final 01/23/20 02:12 Blood - Blood Anaerobic Blood Culture - Final Enterococcus Faecalis 01/23/20 02:12 Blood - Blood Gram Stain - Final 01/23/20 02:30 Blood - Blood Aerobic Blood Culture - Final Enterococcus Faecalis 01/23/20 02:30 Blood - Blood Blood Culture Gram Stain - Final 01/23/20 02:30 Blood - Blood Anaerobic Blood Culture - Final Enterococcus Faecalis 01/23/20 02:30 Blood - Blood Gram Stain - Final 01/23/20 02:33 Throat Culture & Sensitivity - Final Medications List Reviewed: Yes Assessment & Plan - Problems (Diagnosis) (1) Acute exacerbation of CHF (congestive heart failure) Current Visit: Yes Status: Acute (2) Pleural effusion, bilateral Current Visit: Yes Status: Acute (3) Respiratory failure Current Visit: Yes Status: Acute Qualifiers: Chronicity: acute Respiratory failure complication: hypoxia Qualified Code(s): J96.01 - Acute respiratory failure with hypoxia (4) H/O cardiac pacemaker Current Visit: Yes Status: Acute (5) H/O atrial fibrillation without current medication Current Visit: Yes Status: Acute (6) H/O: CVA (cerebrovascular accident) Current Visit: Yes Status: Acute - Plan 1. Attempting to identify source of infection; day #1 of antibiotics; Echocardiogram reviewed; AR-moderate; diastolic dysfunction; no vegetations 2. Continue to diurese. On oral lasix and aldactone 3. Continue with amiodarone 4. Cardiology consultation and Pulmonary consultation appreciated 5. Antibiotic choice limited with penicillin allergy; continue Levaquin; monitoring QT on telemetry as patient is also on Amiodarone; no significant abnormalities noted. Do not want to give to large dose of levaquin at one time. will monitor and repeat blood cultures 6. Strict I's and O's 7. Repeat CXR 8. Daily weights 9. BIPAP resumed-patient was on 4-5 L and went up to BIPAP; will place on venti Discharge Plan: Detention Plan to discharge in: 48 Hours - Advance Directives Does patient have a Living Will: No Does patient have a Durable POA for Healthcare: No - Code Status/Comfort Care Code Status: Full Code Critical Care: No Time Spent Managing PTS Care (In Minutes): 35
[2020-01-26 13:04] LABS: Absolute Lymphocytes (CBC) 0.6 K/uL (0.7-4.9); Basophils % 0.1 % (0-1.3); Hematocrit 29.6 % (36.0-45.0); Lymphocytes % 13.6 % (15.3-44.8); MPV 9.3 fL (7.6-11.3); RBC Red Blood Cell Count 3.78 M/uL (3.86-4.86)
[2020-01-26 13:37] LABS: Albumin 2.7 g/dL (3.4-5.0); Bilirubin Direct 0.2 mg/dL (0-0.2); Bilirubin Total 0.6 mg/dL (0.2-1.0); C-Reactive Protein 60.6 mg/L (<3.00); Ferritin 120.5 ng/mL (8-388); Protein, Total 7.1 g/dL (6.4-8.2)
[2020-01-26] MEDS ORDERED: Levofloxacin 750mg IV 750 MG/150 ML BAG IV SCH (16:00)
[2020-01-26] MEDS: BENZONATATE 100 MG CAP PO PRN (16:47)
[2020-01-26 18:13] LABS: Urine Appearance CLOUDY; Urine Bilirubin NEGATIVE (NEG); Urine Blood 1+ (NEG); Urine Color YELLOW; Urine Glucose NEGATIVE (NEG); Urine Protein NEGATIVE (NEG); Urine Specific Gravity 1.015 (1.005-1.030); Urine Urobilinogen 0.2 mg/dL (0.2-1.0)
[2020-01-26 19:09] LABS: Urine Bacteria >50 /HPF (<20); Urine Culture Reflex Order REFLEXED
[2020-01-26] MEDS ORDERED: LORazepam 2 MG/ML VIAL IV PRN (19:48)
[2020-01-26] MEDS: ATORVASTATIN 20 MG TAB PO SCH (21:00)
[2020-01-27] MEDS: IPRATROPIUM BROM 0.5MG/2.5ML NEB SCH ×3 (02:00→13:02)
[2020-01-27] MEDS: ALBUTEROL 2.5 MG/3 ML NEB SOL NEB SCH ×3 (02:00→13:02)
[2020-01-27] MEDS ORDERED: FUROSEMIDE 20 MG/ 2ML VIAL IV ONE (04:40)
[2020-01-27] MEDS: METHYLPREDNISOLONE 125 MG INJ IV SCH ×2 (05:19→12:23)
[2020-01-27] MEDS: LEVOTHYROXINE SOD 0.125 MG TAB PO SCH (05:28)
[2020-01-27] MEDS: PANTOPRAZOLE 40MG TABLET PO SCH (05:28)
[2020-01-27] MEDS: ENOXAPARIN 80 MG/0.8 ML SQ SCH (07:29)
[2020-01-27 08:33] VITALS: O2SAT 96
[2020-01-27] MEDS: JUVEN PACKET PO SCH (09:00)
[2020-01-27] MEDS ORDERED: CALCIUM CARBONATE 500 MG TAB PO SCH (09:00)
--- NOTE | 2020-01-27 09:02 | P.PN ---
Subjective Date of Service: 01/27/20 Primary Care Provider: long-term Chief Complaint: CHF with acute exacerbation/shortness of breath Subjective: Improving (Doing well. On nasal cannula. No edema noted to the lower extremity.) Physical Examination - Vital Signs Temperature: 97.3 F Blood Pressure: 118/54 Pulse: 82 Respirations: 20 Pulse Ox (%): 95 - Physical Exam General: Alert, In no apparent distress, Oriented x3, Cooperative HEENT: Atraumatic Neck: Supple Respiratory: Clear to auscultation bilaterally, Normal air movement Cardiovascular: Irregular heart rate/rhythm (AFib rate controlled) Gastrointestinal: Normal bowel sounds, No masses, No rebound, No guarding Integumentary: No tenderness/swelling, No erythema, No warmth, No cyanosis Neurological: Normal speech, Normal strength at 5/5 x4 extr, Normal tone, Normal affect - Studies Medications List Reviewed: Yes Assessment & Plan Discharge Plan: [facility] Plan to discharge in: 24 Hours Physician Review Additional Text: Impression: Dyspnea/pleural effusion secondary to acute respiratory failure with hypoxia related to acute on chronic diastolic CHF Bacteremia, blood culture positive for Enterococcus Atrial fibrillation on chronic anti coagulation therapy with history of pacemaker Hypertension Hyperlipidemia Hypothyroidism Dementia Plan: Dyspnea/pleural effusion secondary to acute respiratory failure with hypoxia related to acute on chronic diastolic CHF: Patient stable this time. Continue oxygen to maintain sats above 93%. Continue 1500 cc per day fluid restriction and low-salt diet. Recommend to monitor weight daily. Spoke with pulmonology. Pulmonology recommends to continue Lasix 40 mg every a.m. and 20 mg every p.m.. New medication includes Aldactone 25 mg daily. CHF education provided. [facility] Dr. Giordano will continue with Dc summary. Bacteremia, blood culture positive for Enterococcus: Patient will continue with Levaquin 250 mg daily for 12 days. Recommend to recheck blood culture after that time to monitor resolution. Atrial fibrillation on chronic anti coagulation therapy with history of pacemaker: Continue home medications including Eliquis 5 mg 1 pill twice daily, amiodarone 1 her mg daily, metoprolol ER 12.5 mg 1 pill twice daily. Hypertension: Continue Norvasc 5 mg daily and metoprolol ER 12.5 mg 1 pill twice daily. Hyperlipidemia: Continue Zocor 40 mg daily. Hypothyroidism: Continue levothyroxine 100 mcg daily. Dementia: Overall stable. Continue aspiration and fall precaution. As mentioned above [facility] today. Time Spent Managing Pts Care (In Minutes): 55
[2020-01-27] MEDS: SPIRONOLACTONE 25 MG TABLET PO SCH (09:27)
[2020-01-27] MEDS: FUROSEMIDE 40 MG TABLET PO SCH (09:27)
[2020-01-27] MEDS: SENOSIDES 8.6 MG TAB PO SCH (09:27)
[2020-01-27] MEDS: AMIODARONE HCL 200 MG TAB PO SCH (09:30)
--- NOTE | 2020-01-27 10:04 | RAD REPORT ---
EXAM DESCRIPTION: Edison Pa And Lat (2 Views)01/27/2020 9:52 am CLINICAL HISTORY: Shortness of breath COMPARISON: January 22 and January 26, 2020 chest x-rays FINDINGS: Small to moderate bilateral pleural effusions appear decreased in size from the January 23, 2020 exam Mild bilateral pulmonary opacities have partially resolved probably mild pulmonary edema Heart remains enlarged. Pacemaker leads in place
[2020-01-27 12:44] VITALS: TEMP 97.3
--- NOTE | 2020-01-27 12:44 | P.PN ---
Subjective Date of Service: 01/27/20 Primary Care Provider: alf Chief Complaint: CHF with acute exacerbation/shortness of breath Subjective: Improving (Patient is doing much better very alert responsive cooperative wants to go back to the [facility]) Review of Systems General: Weakness Respiratory: Shortness of Breath Physical Examination - Vital Signs Temperature: 97.3 F Blood Pressure: 118/54 Pulse: 82 Respirations: 20 Pulse Ox (%): 95 - Physical Exam General: Alert, Oriented x3 Respiratory: Diminished Cardiovascular: No edema Gastrointestinal: Normal bowel sounds - Studies Medications List Reviewed: Yes Assessment & Plan - Problems (Diagnosis) (1) Respiratory failure Current Visit: Yes Status: Acute Plan: Patient admitted with respiratory failure she has borderline hypoxic stable to be discharged back to the [facility] blood gases shows significant hypoxemia I am not sure why she is so hypoxic patient's blood cultures are all positive for enterococcus patient's renal function is now normal Qualifiers: Chronicity: acute Respiratory failure complication: hypoxia Qualified Code(s): J96.01 - Acute respiratory failure with hypoxia (2) Bacteremia due to Enterococcus Current Visit: Yes Status: Acute Plan: Patient is clinically improving blood cultures still positive discharge on levofloxacin 500 mg p.o. daily for at least 2 weeks patient is on low-dose amiodarone most likely is UTI patient's vital signs stable white count is normal clinically she is much better eating and drinking
[2020-01-27 18:23] VITALS: BP 119/56
== END 2020-01-27 16:29 | DRG 291 ==
LOC: ER 01:50 → ERHOLD 04:32 → 2ND 04:50
PROVIDERS: ADMIT Hospitalist; ATTEND Family Medicine
PROC: 5A09557 Assistance with Respiratory Ventilation, Greater than 96 Consecutive Hours, Continuous Positive Airway Pressure (ICD-10-PCS; principal; 2020-01-23)
DX: I11.0 Hypertensive heart disease with heart failure (principal); J96.01 Acute respiratory failure with hypoxia; I48.20 Chronic atrial fibrillation, unspecified; E87.0 Hyperosmolality and hypernatremia; R78.81 Bacteremia; I50.33 Acute on chronic diastolic (congestive) heart failure; Z79.01 Long term (current) use of anticoagulants; Z95.0 Presence of cardiac pacemaker; Z86.73 Personal history of transient ischemic attack (TIA), and cerebral infarction without residual deficits; Z88.0 Allergy status to penicillin; Z88.1 Allergy status to other antibiotic agents; Z88.5 Allergy status to narcotic agent; Z79.890 Hormone replacement therapy; Z79.899 Other long term (current) drug therapy; E03.9 Hypothyroidism, unspecified; K21.9 Gastro-esophageal reflux disease without esophagitis; I48.0 Paroxysmal atrial fibrillation; F03.90 Unspecified dementia, unspecified severity, without behavioral disturbance, psychotic disturbance, mood disturbance, and anxiety; G62.9 Polyneuropathy, unspecified; T50.995A Adverse effect of other drugs, medicaments and biological substances, initial encounter; R79.1 Abnormal coagulation profile; D64.9 Anemia, unspecified; R79.89 Other specified abnormal findings of blood chemistry; B95.2 Enterococcus as the cause of diseases classified elsewhere; E78.5 Hyperlipidemia, unspecified; Z20.828 Contact with and (suspected) exposure to other viral communicable diseases
CPT/HCPCS: 36415; 71045; 71046; 71275; 76604; 80048; 80076; 81001; 81003; 82728; 82805; 83605; 83615; 83735; 83880; 84132; 84145; 84443; 84484; 85025; 85379; 85610; 86140; 87040; 87070; 87077; 87081; 87086; 87088; 87186; 87205; 87804; 93005; 93306; 94640; 94660; 94760; 96374; 99285; J1940; J2930; J3480; J7050; P9047; Q9967; U0003

== ENCOUNTER 2020-02-18 14:54 | Inpatient (IN) | payer OTHER ==
[2020-02-18] MEDS ORDERED: NA CHLORIDE 0.9% 2,000 ML ONE (16:05)
--- NOTE | 2020-02-18 16:20 | RAD REPORT ---
EXAM DESCRIPTION: RAD - Chest Single View - 02/18/2020 4:00 pm CLINICAL HISTORY: Pneumonia COMPARISON: January 26 TECHNIQUE: AP portable chest image was obtained 02/18/2020 4:00 pm . FINDINGS: Lung volumes are low. Central vasculature is prominent with cardiomegaly. Interstitial mar kings are increased. Pacemaker is in place. Trachea is midline. No measurable pleural effusion and no pneumothorax. No acute bony abnormality seen. No acute aortic findings suspected. IMPRESSION: Moderate CHF/volume overload pattern. A separate pneumonia is not identifiable.
[2020-02-18 16:46] LABS: Absolute Lymphocytes (CBC) 1.4 K/uL (0.7-4.9); Basophils % 0.1 % (0-1.3); Hematocrit 19.1 % (36.0-45.0); Lymphocytes % 6.6 % (15.3-44.8); MPV 9.8 fL (7.6-11.3); RBC Red Blood Cell Count 2.54 M/uL (3.86-4.86)
[2020-02-18 16:49] LABS: Protime INR 2.55
[2020-02-18 16:50] LABS: Urine Blood 1+ (NEG); Urine Glucose NEGATIVE (NEG); Urine Protein 1+ (NEG); Urine Specific Gravity 1.015 (1.005-1.030); Urine pH 5.5 (5.0-7.0)
[2020-02-18 17:07] LABS: Bilirubin Direct 0.2 mg/dL (0-0.2); Bilirubin Total 0.5 mg/dL (0.2-1.0); CKMB Creatine Kinase MB 4.1 ng/mL (0.3-3.6); Potassium 4.9 mmol/L (3.5-5.1); Protein, Total 6.5 g/dL (6.4-8.2)
[2020-02-18 17:24] LABS: Blood Morphology Comment NOTED (NOT SEEN); Hypochromasia 1+; Platelet Estimate ADEQ
--- NOTE | 2020-02-18 17:46 | EDPHYS ---
Physician Documentation [facility] Name: Chhaya Crisostomo Age: 79 yrs Sex: Female : 1940 Arrival Date: 02/18/2020 Time: 14:55 Bed 7 Private MD: ED Physician Alcon Gonzales HPI: 02/17 16:44 This 79 yrs old Female presents to ER via EMS with complaints of Altered pm1 Mental Status. 16:44 The patient presents with decreased mental status. Onset: The symptoms/episode pm1 began/occurred today. Possible causes: UTI and pneumonia. Associated signs and symptoms: Pertinent negatives: diarrhea, shortness of breath, vomiting, Pain. Patient's baseline: Neuro: orientated to person, Motor: no deficits, The patient has a previous history of Dementia/Alzheimer's . The patient has been recently seen by a physician: the patient's primary care provider, Patient with chest x-ray and [facility]. Was diagnosed with UTI and pneumonia and started on antibiotics yesterday. Patient was treated with doxycycline and augmentin. Historical: - Allergies: 15:05 Codeine; hb 15:05 PENICILLINS; hb 15:05 Sulfa (Sulfonamide Antibiotics); hb - Home Meds: 15:07 amiodarone 100 mg Oral tab 1 tab once daily for Prevention of Recurrent Atrial hb Fibrillation [Active]; amlodipine 5 mg tab 1 tab once daily [Active]; Arginaid 4.5 gram-156 mg/9.2 gram Oral pwpk daily [Active]; ascorbic acid (vitamin C) 500 mg tab daily [Active]; calcium carbonate 500 mg calcium (1,250 mg) Oral chew twice a day [Active]; calcium carbonate-vitamin D3 600 mg(1,500mg) -400 unit Oral cap daily [Active]; Cepacol Maximum Strength MM every 4 hours [Active]; cyanocobalamin (vitamin B-12) 1,000 mcg Oral tab daily [Active]; Eliquis 5 mg Oral tab 2 times per day [Active]; gabapentin 100 mg Oral cap 3 times per day [Active]; Lasix 40 mg Oral tab 1 tab once daily [Active]; levothyroxine 100 mcg tab 1 tab once daily [Active]; loratadine 10 mg Oral tab 1 tab once daily [Active]; Guaifenesin DM 100-10 Oral 10 mL every 6 hours [Active]; magnesium oxide 400 mg Oral tab daily [Active]; metoprolol succinate 25 mg Oral Tb24 0.5 tab twice a day [Active]; Miralax 17 gram/dose Oral powd once daily [Active]; multivitamin with minerals Oral tab daily [Active]; omeprazole 20 mg Oral cpDR 2 caps once daily [Active]; potassium chloride 10 mEq Oral TbER 1 tab once daily [Active]; sennosides 8.6 mg Oral tab 1 tabs once daily [Active]; simethicone 80 mg Oral chew 80 mg twice a day [Active]; simvastatin 40 mg Oral tab 1 tab once daily [Active]; Singulair 10 mg Oral tab 1 tab once daily [Active]; Tessalon Perles 100 mg Oral cap 1 cap 3 times per day for Cough [Active]; tramadol 50 mg Oral tab 1 tab every 4 hours [Active]; tramadol-acetaminophen 37.5-325 mg Oral tab 1 tabs every 4 hours [Active]; Xopenex 0.63 mg/3 mL Inhl nebu 3 mL every 6 hours [Active]; zinc sulfate 220 (50) mg Oral cap daily [Active]; Zofran (as hydrochloride) 4 mg Oral tab 1 tabs every 8 hours [Active]; - PMHx: 15:05 DYSPHAGIA; hypocalcemia; Hyperlipidemia; Hypertension; Hypothyroidism; Atrial Fib; CVA; hb osteoarthritis; Dementia; Degenerative Disease of the Basal Ganglia; - PSHx: 15:05 Cardiac Pacer; hb - Immunization history:: Adult Immunizations unknown. - Social history:: Smoking status: unknown. ROS: 16:49 Unable to obtain ROS due to altered mental status, information obtained from family in pm1 the room. Exam: 16:49 Head/Face: Normocephalic, atraumatic. pm1 16:49 Skin: Warm, dry with normal turgor. Normal color with no rashes, no lesions, and no evidence of cellulitis. MS/ Extremity: Pulses equal, no cyanosis. Neurovascular intact. Full, normal range of motion. 16:49 Constitutional: The patient appears non-diaphoretic, well developed, well groomed, emaciated, obviously ill. 16:49 Cardiovascular: Exam negative for Rate: normal, Rhythm: regular, Pulses: no pulse deficits are appreciated, Edema: is not appreciated. 16:49 Respiratory: Exam negative for respiratory distress, shortness of breath. 16:49 Abdomen/GI: Inspection: abdomen appears normal, Palpation: abdomen is soft and non-tender, in all quadrants, mass, is not appreciated, rebound tenderness, is not appreciated. 16:49 Neuro: Orientation: to person, Mentation: confused, Motor: moves all fours. 17:46 Abdomen/GI: Rectal exam: rectal tone normal, Stool: normal, guaiac negative, Ditto Machine Operator pm1 Malka RN. Vital Signs: 14:59 BP 94 / 37; Pulse 92; Resp 16; Temp 97.7; Pulse Ox 92% on R/A; Weight 60 kg; Pain 0/10; hb 16:05 Pulse Ox 88% on R/A; hb 16:30 BP 94 / 38; Pulse 64; Resp 14; Pulse Ox 94% on 2 lpm NC; hb 17:45 BP 101 / 51; Pulse 66; Resp 15; Pulse Ox 96% on 2 lpm NC; hb 19:00 BP 101 / 41; Pulse 71; Resp 17; Pulse Ox 97% on R/A; rv 20:00 BP 101 / 50; Pulse 66; Resp 16; Pulse Ox 97% on R/A; rv 20:30 BP 98 / 64; Pulse 66; Resp 16; Pulse Ox 96% on R/A; rv 21:00 BP 110 / 56; Pulse 69; Resp 17; Temp 98.2; Pulse Ox 96% on R/A; rv 14:59 Farah-Garcia (FACES) hb Virgilio Coma Score: 20:30 Eye Response: spontaneous(4). Verbal Response: confused(4). Motor Response: obeys rv commands(6). Total: 14. MDM: 15:20 Patient medically screened. pm1 15:28 ED course: PCN reaction per daughter is rash. Will give rocephin. pm1 16:36 Data reviewed: vital signs. Data interpreted: Pulse oximetry: on room air is 92 %. pm1 Interpretation: normal. 16:36 ED course: Change fluid bolus to 500mL at a time due to chest x-ray reading. No pm1 pneumonia present. Patient with moderate CHF on chest xray. Patient still hypotensive so will give fluids slowly. 17:23 Counseling: I had a detailed discussion with the patient and/or guardian regarding: lab pm1 results, troponin. Patient's daughters informed me that she is DNR. The daughter with power of system operator is going to get her DNR form from he car. 17:43 Counseling: I had a detailed discussion with the patient and/or guardian regarding: the pm1 historical points, exam findings, and any diagnostic results supporting the discharge/admit diagnosis, lab results, radiology results, the need for further work-up and treatment in the hospital. 18:25 Physician consultation: Levon GUAN was called at 18:25, was contacted at pm1 18:25, regarding admission, patient's condition, would like medications started, merrum. He reviewed prior urine culture and recommend merrum due to ESBL UTI. 02/17 15:25 Order name: Urine Culture pm1 02/17 15:25 Order name: Amylase, Serum; Complete Time: 17:10 pm1 02/17 15:25 Order name: Basic Metabolic Panel; Complete Time: 17:10 pm1 02/17 15:25 Order name: Blood Culture Adult (2) pm1 02/17 15:25 Order name: CBC with Diff; Complete Time: 17:25 pm1 02/17 15:25 Order name: Ckmb; Complete Time: 17:10 pm1 02/17 15:25 Order name: CPK; Complete Time: 17:10 pm1 02/17 15:25 Order name: Lactate; Complete Time: 17:06 pm1 02/17 15:25 Order name: LFT's; Complete Time: 17:10 pm1 02/17 15:25 Order name: Lipase; Complete Time: 17:10 pm1 02/17 15:25 Order name: Procalcitonin; Complete Time: 18:10 pm1 02/17 15:25 Order name: Protime (+inr); Complete Time: 17:06 pm1 02/17 15:25 Order name: Ptt, Activated; Complete Time: 17:06 pm1 02/17 15:25 Order name: Troponin (emerg Dept Use Only); Complete Time: 17:10 pm1 02/17 15:25 Order name: Urine Microscopic Only; Complete Time: 18:18 pm1 02/17 15:28 Order name: Flu; Complete Time: 18:34 pm1 02/17 15:28 Order name: Strep; Complete Time: 18:30 pm1 02/17 16:48 Order name: Urine Dipstick--Ancillary (enter results) bd 02/17 16:50 Order name: Urine Dipstick-Ancillary EDTN 02/17 16:56 Order name: Type And Screen pm1 02/17 17:08 Order name: SARS-COV-2 RT PCR; Complete Time: 18:18 EDMS 02/17 17:24 Order name: Manual Differential; Complete Time: 17:25 EDMS 02/17 18:31 Order name: Throat Culture EDTN 02/17 18:33 Order name: Bb Add On bd 02/17 18:35 Order name: Packed RBC Leukored EDTN 02/17 19:08 Order name: Lactate EDTN 02/17 19:08 Order name: Urinalysis EDTN 02/17 19:08 Order name: Basic Metabolic Panel EDTN 02/17 19:08 Order name: Basic Metabolic Panel EDTN 02/17 15:25 Order name: Chest Single View XRAY; Complete Time: 16:34 pm1 02/17 15:25 Order name: Accucheck; Complete Time: 16:42 pm1 02/17 15:25 Order name: Cardiac monitoring; Complete Time: 16:42 pm1 02/17 15:25 Order name: EKG - Nurse/Tech; Complete Time: 16:43 pm1 02/17 15:25 Order name: IV Saline Lock - Large Bore; Complete Time: 16:43 pm1 02/17 15:25 Order name: Labs collected and sent; Complete Time: 16:43 pm1 02/17 15:25 Order name: O2 Per Protocol; Complete Time: 16:43 pm1 02/17 15:25 Order name: O2 Sat Monitoring; Complete Time: 16:43 pm1 02/17 15:25 Order name: Urine Dipstick-Ancillary (obtain specimen); Complete Time: 16:43 pm1 02/17 15:28 Order name: Straight Cath - Urine; Complete Time: 16:42 pm1 02/17 16:44 Order name: CT Head Brain wo Cont; Complete Time: 18:10 pm1 02/17 17:13 Order name: Transfuse; Complete Time: 21:20 pm1 02/17 18:57 Order name: CONS Physician Consult EDTN 02/17 19:08 Order name: Heart Healthy EDTN 02/17 19:08 Order name: CBC with Automated Diff EDMS 02/17 19:08 Order name: CBC with Automated Diff EDMS 02/17 19:08 Order name: Magnesium EDMS 02/17 19:08 Order name: Magnesium EDMS 02/17 19:08 Order name: Troponin I EDMS 02/17 19:08 Order name: Troponin I EDMS 02/17 19:08 Order name: Troponin I EDMS 02/17 19:08 Order name: Troponin I EDMS 02/17 19:08 Order name: Troponin I EDMS 02/17 19:12 Order name: ABO/RH no charge EDMS Administered Medications: 16:30 Drug: NS 0.9% (30 ml/kg) 30 ml/kg Route: IV; Rate: bolus; Site: right forearm; hb 17:15 Follow up: Response: No adverse reaction; IV Status: Order to discontinue infusion; IV hb Intake: 700ml 17:47 Drug: Rocephin 1 grams Route: IV; Rate: calculated rate; Site: right forearm; hb 17:48 Follow up: IV Status: Completed infusion; IV Intake: 10ml hb 18:30 Follow up: Response: No adverse reaction hb 18:44 Drug: Meropenem 1 grams Route: IV; Rate: calculated rate; Site: right forearm; hb 19:15 Follow up: IV Status: Completed infusion; IV Intake: 100ml rv Disposition: 02/18 06:59 Co-signature as Attending Physician, Alcon Gonzales MD. rn Disposition: 02/18/20 17:45 Hospitalization ordered by [facility] for Inpatient Admission. Preliminary diagnosis are Altered mental status, unspecified, Urinary tract infection, site not specified, Anemia, unspecified. - Bed requested for Telemetry/MedSurg (Inpatient). - Status is Inpatient Admission. rv - Condition is Stable. - Problem is new. - Symptoms have improved. Signatures: Dispatcher [employer] EDTN Alcon Gonzales MD MD rn Garcia, Cindy, RN RN cg Marinas, Patrick, NP HEDDLER pm1 Malka Cleary RN RN hb Vicente, Ronaldo, RN RN rv Corrections: (The following items were deleted from the chart) 02/17 17:08 15:29 CORONAVIRUS+MR.LAB[facility] 17:45 Hospitalization Ordered by Levon GUAN for Inpatient Admission. cg Preliminary diagnosis is Altered mental status, unspecified; Urinary tract infection, site not specified; Anemia, unspecified. Bed requested for Telemetry/MedSurg (Inpatient). Status is Inpatient Admission. Condition is Stable. Problem is new. Symptoms have improved. pm1 21:21 20:26 02/18/2020 17:45 Hospitalization Ordered by Levon GUAN for Inpatient rv Admission. Preliminary diagnosis is Altered mental status, unspecified; Urinary tract infection, site not specified; Anemia, unspecified. Bed requested for Telemetry/MedSurg (Inpatient). Status is Inpatient Admission. Condition is Stable. Problem is new. Symptoms have improved. cg
--- NOTE | 2020-02-18 17:46 | ER ---
Nurse's Notes [facility] Name: Chhaya Crisostomo Age: 79 yrs Sex: Female : 1940 Arrival Date: 02/18/2020 Time: 14:55 Bed 7 Private MD: Diagnosis: Altered mental status, unspecified;Urinary tract infection, site not specified;Anemia, unspecified Presentation: 02/17 14:59 Chief complaint: EMS states: At baseline pt is AOx1-2, today intermediate staff reports hb she is less responsive than normal. SBP 80s, BGL 108. 20g to RAC. Coronavirus screen: At this time, the client does not indicate any symptoms associated with coronavirus-19. Ebola Screen: No symptoms or risks identified at this time. Initial Sepsis Screen: Does the patient meet any 2 criteria? Altered Mental Status. HR > 90 bpm. Yes Does the patient have a suspected source of infection? No. Patient's initial sepsis screen is negative. Risk Assessment: Do you want to hurt yourself or someone else? Unable to obtain. Onset of symptoms was February 18, 2020. 14:59 Method Of Arrival: EMS: [facility] hb 14:59 Acuity: KRISTOPHER 2 hb Triage Assessment: 15:08 General: Appears in no apparent distress. Behavior is calm. Pain: Unable to use pain hb scale. FLACC scale score is 0 out of 10. EENT: No signs and/or symptoms were reported regarding the EENT system. Neuro: Level of Consciousness is awake, alert, Oriented to none. Cardiovascular: Capillary refill < 3 seconds Patient's skin is warm and dry. Respiratory: Respiratory effort is even, unlabored, Respiratory pattern is regular, symmetrical. GI: No signs and/or symptoms were reported involving the gastrointestinal system. : No signs and/or symptoms were reported regarding the genitourinary system. Derm: Skin is pink, warm \T\ dry. Musculoskeletal: No signs and/or symptoms reported regarding the musculoskeletal system. Historical: - Allergies: 15:05 Codeine; hb 15:05 PENICILLINS; hb 15:05 Sulfa (Sulfonamide Antibiotics); hb - Home Meds: 15:07 amiodarone 100 mg Oral tab 1 tab once daily for Prevention of Recurrent Atrial hb Fibrillation [Active]; amlodipine 5 mg tab 1 tab once daily [Active]; Arginaid 4.5 gram-156 mg/9.2 gram Oral pwpk daily [Active]; ascorbic acid (vitamin C) 500 mg tab daily [Active]; calcium carbonate 500 mg calcium (1,250 mg) Oral chew twice a day [Active]; calcium carbonate-vitamin D3 600 mg(1,500mg) -400 unit Oral cap daily [Active]; Cepacol Maximum Strength MM every 4 hours [Active]; cyanocobalamin (vitamin B-12) 1,000 mcg Oral tab daily [Active]; Eliquis 5 mg Oral tab 2 times per day [Active]; gabapentin 100 mg Oral cap 3 times per day [Active]; Lasix 40 mg Oral tab 1 tab once daily [Active]; levothyroxine 100 mcg tab 1 tab once daily [Active]; loratadine 10 mg Oral tab 1 tab once daily [Active]; Guaifenesin DM 100-10 Oral 10 mL every 6 hours [Active]; magnesium oxide 400 mg Oral tab daily [Active]; metoprolol succinate 25 mg Oral Tb24 0.5 tab twice a day [Active]; Miralax 17 gram/dose Oral powd once daily [Active]; multivitamin with minerals Oral tab daily [Active]; omeprazole 20 mg Oral cpDR 2 caps once daily [Active]; potassium chloride 10 mEq Oral TbER 1 tab once daily [Active]; sennosides 8.6 mg Oral tab 1 tabs once daily [Active]; simethicone 80 mg Oral chew 80 mg twice a day [Active]; simvastatin 40 mg Oral tab 1 tab once daily [Active]; Singulair 10 mg Oral tab 1 tab once daily [Active]; Tessalon Perles 100 mg Oral cap 1 cap 3 times per day for Cough [Active]; tramadol 50 mg Oral tab 1 tab every 4 hours [Active]; tramadol-acetaminophen 37.5-325 mg Oral tab 1 tabs every 4 hours [Active]; Xopenex 0.63 mg/3 mL Inhl nebu 3 mL every 6 hours [Active]; zinc sulfate 220 (50) mg Oral cap daily [Active]; Zofran (as hydrochloride) 4 mg Oral tab 1 tabs every 8 hours [Active]; - PMHx: 15:05 DYSPHAGIA; hypocalcemia; Hyperlipidemia; Hypertension; Hypothyroidism; Atrial Fib; CVA; hb osteoarthritis; Dementia; Degenerative Disease of the Basal Ganglia; - PSHx: 15:05 Cardiac Pacer; hb - Immunization history:: Adult Immunizations unknown. - Social history:: Smoking status: unknown. Screenin:08 Abuse screen: unable to assess. Nutritional screening: No deficits noted. Tuberculosis hb screening: No symptoms or risk factors identified. Fall Risk Total Haque Fall Scale indicates High Risk Score (45 or more points). Fall prevention measures have been instituted. Side Rails Up X 2 Frequent Obs/Assessments Occuring Family Present and informed to notify staff if the need to leave the bedside As available patient and family educated on Fall Prevention Program and Strategies. Assessment: 16:00 Reassessment: Patient appears in no apparent distress at this time. No changes from hb previously documented assessment. Family remains at bedside. 16:15 Reassessment: Pt turned to left side. hb 17:00 Reassessment: Patient appears in no apparent distress at this time. No changes from hb previously documented assessment. 18:00 Reassessment: Patient appears in no apparent distress at this time. No changes from hb previously documented assessment. Admission ordered, family remains at bedside. Awaiting PRBCs from blood bank and room assignment at this time. 18:14 Reassessment: Pt turned to right side. hb 18:53 Reassessment: Pt turned to left side. Family remains at bedside, awaiting room hb assignment at this time. 20:52 General: Behavior is calm, cooperative. Pain: Denies pain. Neuro: Level of rv Consciousness is awake, alert, Oriented to person. Cardiovascular: Patient's skin is warm and dry. Respiratory: Airway is patent Respiratory effort is even, unlabored, Breath sounds are clear bilaterally. 21:18 Reassessment: REPORT GIVEN TO GABBIE CARTER. Neuro: Level of Consciousness is awake, alert, rv Oriented to person. Respiratory: Airway is patent Respiratory effort is even, unlabored. Vital Signs: 14:59 BP 94 / 37; Pulse 92; Resp 16; Temp 97.7; Pulse Ox 92% on R/A; Weight 60 kg; Pain 0/10; hb 16:05 Pulse Ox 88% on R/A; hb 16:30 BP 94 / 38; Pulse 64; Resp 14; Pulse Ox 94% on 2 lpm NC; hb 17:45 BP 101 / 51; Pulse 66; Resp 15; Pulse Ox 96% on 2 lpm NC; hb 19:00 BP 101 / 41; Pulse 71; Resp 17; Pulse Ox 97% on R/A; rv 20:00 BP 101 / 50; Pulse 66; Resp 16; Pulse Ox 97% on R/A; rv 20:30 BP 98 / 64; Pulse 66; Resp 16; Pulse Ox 96% on R/A; rv 21:00 BP 110 / 56; Pulse 69; Resp 17; Temp 98.2; Pulse Ox 96% on R/A; rv 14:59 Arnold (FACES) hb Virgilio Coma Score: 20:30 Eye Response: spontaneous(4). Verbal Response: confused(4). Motor Response: obeys rv commands(6). Total: 14. ED Course: 14:55 Patient arrived in ED. hb 14:59 Malka Cleary, RAUL is Primary Nurse. hb 15:04 Triage completed. hb 15:07 Oscar Warner NP is PHCP. pm1 15:07 Alcon Gonzales MD is Attending Physician. pm1 15:07 Arm band placed on. hb 15:08 Patient has correct armband on for positive identification. Bed in low position. Call hb light in reach. Side rails up X2. teletypesetter monitor on. Pulse ox on. NIBP on. 16:00 Chest Single View XRAY In Process Unspecified. EDMS 17:25 CT Head Brain wo Cont In Process Unspecified. EDMS 17:45 Levon Heart PA is Hospitalizing Provider. pm1 17:45 Levon Heart PA is Hospitalizing Provider. pm1 17:47 Urine Dipstick--Ancillary (enter results) Sent. hb 19:00 No provider procedures requiring assistance completed. Inserted saline lock: 22 gauge rv in left forearm, using aseptic technique. ,using aseptic technique. PER AM SHIFT IV is patent, with fluids infusing freely, Patient admitted, IV remains in place. Administered Medications: 16:30 Drug: NS 0.9% (30 ml/kg) 30 ml/kg Route: IV; Rate: bolus; Site: right forearm; hb 17:15 Follow up: Response: No adverse reaction; IV Status: Order to discontinue infusion; IV hb Intake: 700ml 17:47 Drug: Rocephin 1 grams Route: IV; Rate: calculated rate; Site: right forearm; hb 17:48 Follow up: IV Status: Completed infusion; IV Intake: 10ml hb 18:30 Follow up: Response: No adverse reaction hb 18:44 Drug: Meropenem 1 grams Route: IV; Rate: calculated rate; Site: right forearm; hb 19:15 Follow up: IV Status: Completed infusion; IV Intake: 100ml rv Intake: 17:15 IV: 700ml; Total: 700ml. hb 17:48 IV: 10ml; Total: 710ml. hb 19:15 IV: 100ml; Total: 810ml. rv Outcome: 17:45 Decision to Hospitalize by Provider. pm1 21:19 Admitted to Med/surg accompanied by nurse, via stretcher, room 223, Other SBAR Report rv called to GABBIE CARTER 21:19 Condition: good 21:19 Instructed on the need for admit. 21:21 Patient left the ED. rv Signatures: Dispatcher [employer] EDMS Oscar Warner, FLASK CLEANER FLASK CLEANER pm1 Malka Cleary RN RN Babak Lopez RN RN rv Corrections: (The following items were deleted from the chart) 15:43 14:59 BP 94 / 37; Pulse 92bpm; Resp 16bpm; Pulse Ox 92% RA; Temp 97.7F; Pain 0/10, hb Farah-Garcia (FACES) ; hb
--- NOTE | 2020-02-18 17:57 | RAD REPORT ---
EXAM DESCRIPTION: CT - Head Brain Wo Cont - 02/18/2020 5:25 pm CLINICAL HISTORY: AMS COMPARISON: Chest Single View dated 02/18/2020 TECHNIQUE: Axial 5 mm thick images of the head were obtained without IV contrast. All CT scans are performed using dose optimization technique as appropriate and may include automated exposure control or mA/KV adjustment according to patient size. FINDINGS: No intracranial hemorrhage, mass, edema or shift of mid-line structures. No acute infarcti on changes seen. No cortical edema or sulcal effacement. Prominent atrophy and chronic ischemic pena es are present. Ventricles are in proportion to volume loss. There is focally more prominent encephal omalacia in the head of the caudate region on the right. Frontal horn right lateral ventricle has enl arged in proportion. Hyperdensity in this region is believed to be physiologic mineralization and not intraparenchymal hemorrhage. Mastoid air cells and visualized portions of the paranasal sinuses are clear. No acute bony findings. No pneumocephalus is present. No active mastoid or sinus abnormality seen. The patient has air in the soft tissues adjacent to the sphenoid bone extending superiorly along the right temporal bone. No belen ne disruption seen. Source for the air is uncertain. Air could potentially have migrated superiorly f rom the neck or mediastinum. No evidence for a penetrating soft tissue wound. Superior migration from dental process is possible. IMPRESSION: Prominent atrophy and chronic ischemic change along with old infarction as detailed. No acute intracranial finding. Patient has multiple small air densities in the soft tissues lateral to the sphenoid and pterygoid belen robinson on the right. No bone or sinus disruption seen. No pneumocephalus. Source for the air is uncertain. This may have migrated superiorly from the dental process or even po ssibly from the neck or mediastinum.
[2020-02-18] MEDS ORDERED: CEFTRIAXONE/SWI 1gm 1 GM/10 ML SYR ONE (18:11)
[2020-02-18 18:15] LABS: Urine Amorphous Sediment 2+ /HPF (NONE SEEN); Urine Bacteria 20-50 /HPF (<20); Urine Culture Reflex Order NOT NEEDED; Urine Mucus 2+ /HPF (NONE SEEN)
[2020-02-18] MEDS: NA CHLORIDE 0.9% 1,000 ML IV SCH ×2 (19:00→22:00)
--- NOTE | 2020-02-18 19:24 | P.HP ---
Certification for Inpatient With expected LOS: >2 Midnights Patient will require the following post-hospital care: None Practitioner: I am a practitioner with admitting privileges, knowledge of patient current condition, hospital course, and medical plan of care. Services: Services provided to patient in accordance with Admission requirements found in Title 42 Section 412.3 of the Code of Federal Regulations <Levon Heart - Last Filed: 02/18/20 19:18> Patient History Date of Service: 02/18/20 Reason for admission: Urosepsis/NSTEMI History of Present Illness: 79-year-old female with past medical history of CVA, dementia, essential hypertension and hypothyroidism presents to the emergency room via EMS from her [facility] with complaints of altered mental status. On MondayFebruary 15 patient was noted to be slightly confused and had a chest x- ray in urine sample taken at that time. Patient was started on antibiotics for pneumonia. In the emergency room chest x-ray is negative for pneumonia. Urine shows leukocyte esterase 3+ and white cells of 20-50, white cell count of 21.5, lactic acid normal at 1.7, pro Calot elevated at 2.5, creatinine of 2.7 with a GFR of 17. BUN of 78. There are band-3 and a hemoglobin hematocrit of 6.4/19.1. In January of 2020 patient's hemoglobin was 9.5 with a hematocrit of 29.6. There is no evidence of active bleeding at this time. Patient has decrease in her p.o. intake and per family members they have noted a decline in the patient's overall well being. Patient is DNR. On exam patient is alert and oriented x1. She is in no distress. She is pleasant. Per family members she is usually and alert and oriented x2 but it is intermittent. Patient states that she feels better. Patient will be admitted and further evaluated. Home medications list reviewed: Yes - Past Medical/Surgical History Diabetic: No -: Chronic atrial fibrillation -: History of CVA -: History of hip fracture -: Essential hypertension -: Hypothyroidism -: Cardiac pacemaker -: Hip fracture repair Psychosocial/ Personal History: Current resident of [facility] - Family History Family History: Reviewed- Non-Contributory - Social History Smoking Status: Never smoker Alcohol use: No CD- Drugs: No Caffeine use: No Place of Residence: Home <Levon Heart - Last Filed: 02/18/20 19:18> Date of Service: 02/18/20 <umang teixeira - Last Filed: 02/18/20 20:24> Allergies codeine Allergy (Verified 09/04/19 09:22) Rash Penicillins Allergy (Verified 09/04/19 09:22) Rash Sulfa (Sulfonamide Antibiotics) Allergy (Verified 09/04/19 09:22) Rash Home Medications: Amiodarone HCl 100 mg PO DAILY 09/04/19 Amlodipine Besylate 5 mg PO DAILY 09/04/19 Apixaban [Eliquis] 1 tab PO BID 09/04/19 Arginine/Ascorbate Sod/[place] AC [Arginaid Powder] 1 packet PO DAILY 09/04/19 Ascorbic Acid 1 tab PO DAILY 09/04/19 Benzocaine/Menthol [Cepacol Sore Throat Lozenge] 1 tab PO Q4H PRN 09/04/19 Calcium Carbonate/Vitamin D3 [Calcium 600-Vit D3 400 Tablet] 1 tab PO DAILY 09/04/19 Cyanocobalamin [Vitamin B-12*] 1 tab PO DAILY 09/04/19 Gabapentin 1 tab PO TID 09/04/19 Loratadine 1 tab PO DAILY 09/04/19 Magnesium Oxide [Magnesium] 400 mg PO DAILY 09/04/19 Metoprolol Succinate 12.5 mg PO BID 09/04/19 Montelukast [Singulair*] 10 mg PO DAILY 09/04/19 Multivitamin 1 tab PO DAILY 09/04/19 Omeprazole 40 mg PO DAILY 09/04/19 Ondansetron [Zofran (Odt)*] 4 mg PO Q8H PRN 09/04/19 Polyethylene Glycol 3350 [Miralax] 17 gm PO DAILY PRN 09/04/19 Sennosides [Senna] 1 cap PO DAILY PRN 09/04/19 Simethicone [Mylicon*] 1 tab PO Q12H PRN 09/04/19 Simvastatin 40 mg PO DAILY 09/04/19 Zinc Sulfate [Zinc Sulfate*] 220 mg PO DAILY 09/04/19 traMADol HCL [Ultram*] 1 tab PO Q4H PRN 09/04/19 Benzonatate [Tessalon Perle*] 1 cap PO Q8H PRN 01/23/20 Calcium Carbonate [Oscal*] 500 mg PO BID 01/23/20 Guaifenesin/Dextromethorphan [Guaifenesin-Dm 100-10 mg/5 ml] 10 ml PO Q6H PRN 01/23/20 Levalbuterol HCl [Xopenex] 0.63 mg NEB Q6H PRN 01/23/20 Levothyroxine [Synthroid*] 100 mcg PO DAILY 01/23/20 Potassium Chloride 10 meq PO DAILY 01/23/20 Potassium Chloride 20 meq PO DAILY 01/23/20 Tramadol HCl/Acetaminophen [Tramadol-Acetaminophn 37.5-325] 1 tab PO Q4H PRN 01/23/20 Furosemide [Lasix] 20 mg PO 1500 #30 01/27/20 Furosemide [Lasix] 40 mg PO 0700 #30 01/27/20 Drew [Drew*] 1 pkt PO BID #60 powd.pack 01/27/20 Spironolactone [Aldactone*] 25 mg PO DAILY #30 tab 01/27/20 levoFLOXacin [Levaquin] 500 mg PO DAILY #12 tablet 01/27/20 Review of Systems General: Weakness, As per HPI Eyes: Unremarkable ENT: Unremarkable Respiratory: Unremarkable Cardiovascular: Unremarkable Gastrointestinal: Unremarkable Genitourinary: As per HPI Musculoskeletal: Unremarkable Integumentary: Unremarkable Neurological: Confusion, As per HPI <Levon Heart - Last Filed: 02/18/20 19:18> Physical Examination - Vital Signs Temperature: 97.7 F Blood Pressure: 94/37 Pulse: 92 Respirations: 16 Pulse Ox (%): 92 (RA) - Physical Exam General: Alert, In no apparent distress, Oriented x1, Cooperative HEENT: Atraumatic, Normocephalic, Mucous membr. moist/pink Neck: Supple, No Thyromegaly, Other (Trachea midline) Respiratory: Clear to auscultation bilaterally, Normal air movement Cardiovascular: No edema, Normal pulses Capillary refill: <2 Seconds Gastrointestinal: Normal bowel sounds, Soft and benign, Non-distended Musculoskeletal: No clubbing, No swelling, No contractures Integumentary: No rashes, No breakdown, No significant lesion Neurological: Normal speech, Normal tone, Sensation intact - Studies Laboratory Data (last 24 hrs) 02/18/20 16:22: PT 29.5 H, INR 2.55, APTT 35.0 02/18/20 16:22: WBC 21.5 H*, Hgb 6.4 L*, Hct 19.1 L*, Plt Count 234 02/18/20 16:22: Sodium 139, Potassium 4.9, BUN 78 H, Creatinine 2.71 H, Glucose 112 H, Total Bilirubin 0.5, AST 19, ALT 13, Alkaline Phosphatase 93, Amylase 21 L, Lipase 43 L Microbiology Data (last 24 hrs): 02/18/20 16:20 Nasopharnyx Influenza Type A Antigen Screen - Final 02/18/20 16:20 Nasopharnyx Influenza Type B Antigen Screen - Final 02/18/20 16:20 Throat Group A Streptococcus Rapid Screen - Final <Levon Heart - Last Filed: 02/18/20 19:18> - Studies Laboratory Data (last 24 hrs) 02/18/20 16:22: PT 29.5 H, INR 2.55, APTT 35.0 02/18/20 16:22: WBC 21.5 H*, Hgb 6.4 L*, Hct 19.1 L*, Plt Count 234 02/18/20 16:22: Sodium 139, Potassium 4.9, BUN 78 H, Creatinine 2.71 H, Glucose 112 H, Total Bilirubin 0.5, AST 19, ALT 13, Alkaline Phosphatase 93, Amylase 21 L, Lipase 43 L Microbiology Data (last 24 hrs): 02/18/20 16:20 Nasopharnyx Influenza Type A Antigen Screen - Final 02/18/20 16:20 Nasopharnyx Influenza Type B Antigen Screen - Final 02/18/20 16:20 Throat Group A Streptococcus Rapid Screen - Final <umang teixeira - Last Filed: 02/18/20 20:24> Assessment and Plan - Plan Impression: Sepsis secondary to ESBL urinary tract infection: NSTEMI with history of chronic atrial fibrillation on anticoagulation therapy: Acute kidney injury: Anemia of chronic disease: Chronic atrial fibrillation: Essential hypertension: Hypothyroidism: Plan: Sepsis secondary to ESBL urinary tract infection: Patient was started with sepsis protocol in the ED with light IV fluid use due to her history of cardiac issues. Will continue gentle IV hydration, based on urine culture from February 13, 2020 patient has a ESBL UTI resistant to multiple antibiotics. Will start patient on meropenem 1 g q.8 hr IV. Monitor vitals. Continuous telemetry. NSTEMI with history of chronic atrial fibrillation on anticoagulation therapy: Patient currently on anticoagulation therapy of Eliquis 5 mg b.i.d.. Will continue. Continuous telemetry. Chronic atrial fibrillation with rate controlled. Troponin of 6.0 on admission. Family does not want aggressive intervention. Will consult Cardiology for possible improvement in medical management. Acute kidney injury: January 26, 2020 creatinine of 0.93 with a GFR of 58. Continue gentle IV hydration. Creatinine on admission of 2.71 with a GFR of 17. Patient has decreased in her p.o. intake per family members. Anemia of chronic disease: Noted to have a decreased hemoglobin of 6.4 with a hematocrit of 19.1 on admission. Will transfuse 1 unit PRBCs. No evidence of active bleeding. Monitor daily labs. Chronic atrial fibrillation: Place on continuous telemetry. Continue anticoagulation therapy. Resume home medications once verified. Essential hypertension: Resume home medications once verified. Monitor blood pressure. Hypothyroidism: Resume home medications once verified. Discharge Plan: Custodial Plan to discharge in: Greater than 2 days - Advance Directives Does patient have a Living Will: No Does patient have a Durable POA for Healthcare: No - Code Status/Comfort Care Code Status Assessed: Yes Time Spent Managing Pts Care (In Minutes): 60 <Levon Heart - Last Filed: 02/18/20 19:18> Physician Review: Patient Assessed, Agree with Above Assessment and Plan Physician Review Additional Text: History of ESBL E. Coli NSTEMI Dementia Plan IV meropenem Trend troponin. Patient is already on the Eliquis. Cardiology consult. <umang teixeira - Last Filed: 02/18/20 20:24>
[2020-02-18] MEDS ORDERED: Meropenem 1,000 MG in NA CHLORIDE 0.9% 100 ML IV ONE (20:00)
[2020-02-18] MEDS: APIXABAN 5 MG TABLET PO SCH (21:00)
[2020-02-19] MEDS ORDERED: Meropenem 1000 MG/VIAL IV SCH ×2 (01:00→17:00)
[2020-02-19 01:24] VITALS: BMI 22.0
[2020-02-19 01:29] LABS: Hematocrit 29.1 % (36.0-45.0)
--- NOTE | 2020-02-19 02:43 | P.INFCA ---
Sepsis Focused Assessment - Sepsis Screen Result Severe Sepsis: Positive Septic Shock: Negative - Evaluation Current stage of sepsis: Severe sepsis - Vital Signs Reviewed: Yes Temperature: 97.8 F Heart rate: 75 Blood Pressure: 118/50 Respiratory Rate: 16 O2 Sat by Pulse Oximetry: 93 - Examination Date exam was performed: 02/18/20 Time exam was performed: 23:30 Heart: Regular rate/rhythm Lungs: Clear bilaterally Peripheral pulses: 3+ Normal Peripheral pulse location: Posterior tibial Capillary refill: <2 Seconds Skin examination: Normal turgor
[2020-02-19 07:39] LABS: Magnesium 2.7 mg/dL (1.8-2.4); Potassium 4.5 mmol/L (3.5-5.1)
[2020-02-19 08:10] LABS: Absolute Lymphocytes (CBC) 1.8 K/uL (0.7-4.9); Basophils % 0.2 % (0-1.3); Hematocrit 29.4 % (36.0-45.0); Lymphocytes % 15.7 % (15.3-44.8); MPV 9.7 fL (7.6-11.3); RBC Red Blood Cell Count 3.76 M/uL (3.86-4.86)
[2020-02-19] MEDS ORDERED: MEROPENEM IV SCH (09:00)
[2020-02-19] MEDS ORDERED: NA CHLORIDE 0.9% IV SCH (09:00)
[2020-02-19] MEDS: APIXABAN 5 MG TABLET PO SCH (09:00)
[2020-02-19] MEDS ORDERED: Meropenem 500 MG in NA CHLORIDE 0.9% 100 ML IV SCH (09:00)
--- NOTE | 2020-02-19 12:50 | P.PN ---
Subjective Date of Service: 02/19/20 Chief Complaint: Urosepsis/NSTEMI Subjective: No new changes, Other (Patient is still confused. She is unable to recognized daughters who are at bedside. I spent time to give clinical status to family members.) Physical Examination - Vital Signs Temperature: 98 F Blood Pressure: 109/55 Pulse: 80 Respirations: 20 Pulse Ox (%): 94 - Physical Exam General: In no apparent distress, Cooperative, Confused HEENT: Atraumatic, Normocephalic, EOMI Neck: Supple Respiratory: Clear to auscultation bilaterally, Normal air movement Cardiovascular: No edema, Normal pulses, Edema Gastrointestinal: Normal bowel sounds, Soft and benign, Non-distended, No tenderness Musculoskeletal: No clubbing, No swelling, No contractures, No erythema, No tenderness, No warmth, Other (limited ROM in all extremities) Neurological: Dementia - Studies Laboratory Data (last 24 hrs) 02/18/20 16:22: PT 29.5 H, INR 2.55, APTT 35.0 02/18/20 16:22: WBC 21.5 H*, Hgb 6.4 L*, Hct 19.1 L*, Plt Count 234 02/18/20 16:22: Sodium 139, Potassium 4.9, BUN 78 H, Creatinine 2.71 H, Glucose 112 H, Total Bilirubin 0.5, AST 19, ALT 13, Alkaline Phosphatase 93, Amylase 21 L, Lipase 43 L Microbiology Data (last 24 hrs): 02/18/20 16:20 Nasopharnyx Influenza Type A Antigen Screen - Final 02/18/20 16:20 Nasopharnyx Influenza Type B Antigen Screen - Final 02/18/20 16:20 Throat Group A Streptococcus Rapid Screen - Final Assessment & Plan Physician Review: Patient Assessed, Agree with Above Assessment and Plan Physician Review Additional Text: Assessment Patient is a 79 year old female admitted overnight for acute encephalopathy. Found to have severe sepsis. Blood and urine cultures showed gram positive cocci in chains and pairs. Patient also had a troponin count of 7.14, currently plateauing. She has no chest pain. Cardiology has seen her on 02/19/2020. Severe sepsis UTI Strep bacteremia NSTEMI LAURIE Acute encephalopathy Dementia Anemia Plan Continue meropenem and IVF infusion Repeat blood cultures 2-D echocardiogram Hold apixaban since patient was just transfused for Hb 6.6 Palliative care consult Discussed with family different non-pharmacologic approach to delirium. Appreciate cooperation Daily CBC, and renal panel Of note, patient is DNR. Family does not want any invasive intervention.
[2020-02-19] MEDS: NA CHLORIDE 0.9% 1,000 ML IV SCH ×2 (13:00→21:39)
[2020-02-19] MEDS: Meropenem 500 MG in NA CHLORIDE 0.9% 100 ML IV SCH ×2 (13:30→21:39)
[2020-02-19] MEDS ORDERED: CODEINE 30MG/APAP 300MG TAB PO ONE (16:12)
[2020-02-19] MEDS ORDERED: PANTOPRAZOLE 40 MG INJ IVP ONE (16:13)
[2020-02-19] MEDS ORDERED: SODIUM CHLORIDE 0.9% 10ML INJ IV SCH (17:00)
[2020-02-19] MEDS: TRAMADOL HCL 50 MG TAB PO PRN (17:27)
--- NOTE | 2020-02-19 18:36 | RAD REPORT ---
EXAM DESCRIPTION: RAD - Abdomen Single View - 02/19/2020 6:22 pm CLINICAL HISTORY: abdominal pain Pain COMPARISON: No comparisons FINDINGS: A few nonspecific but prominent left-sided small bowel loops are present. No evidence of i ntraperitoneal free air. Diffuse COPD is present. No pneumoperitoneum. Cholecystectomy clips are evid ent. Hardware is present proximal left femur.
[2020-02-19] MEDS ORDERED: ENSURE ENLIVE 237 ML CAN PO SCH (21:00)
[2020-02-19] MEDS: BENZONATATE 100 MG CAP PO PRN (21:40)
[2020-02-19] MEDS: JUVEN PACKET PO SCH (21:41)
[2020-02-20] MEDS: TRAMADOL HCL 50 MG TAB PO PRN (02:05)
[2020-02-20] MEDS: BENZONATATE 100 MG CAP PO PRN (04:00)
--- NOTE | 2020-02-20 05:30 | EKG ---
Test Date: 2020-02-18 Test Time: 16:11:29 Radiator Repairer: HB MEASUREMENT RESULTS: Intervals: Rate: 67 KS: 212 QRSD: 188 QT: 532 QTc: 562 [place]: P: 99 KS: 212 QRS: -72 T: 101 INTERPRETIVE STATEMENTS: Sinus rhythm with 1st degree AV block with fusion complexes and premature atrial complexes with aberrant conduction Left axis deviation Right bundle branch block Left ventricular hypertrophy with repolarization abnormality Inferior infarct, age undetermined Anterolateral infarct, age undetermined Abnormal ECG Compared to ECG 01/23/2020 03:52:03 Atrial premature complex(es) now present Fusion complex(es) now present First degree AV block now present Aberrant conduction of supraventricular beat(s) now present Left-axis deviation now present Right bundle-branch block now present Left ventricular hypertrophy now present Electronically Signed On 02-20-20 05:29:10 CDT by Jhon Sommer
[2020-02-20 05:35] LABS: Absolute Lymphocytes (CBC) 3.3 K/uL (0.7-4.9); Basophils % 0.3 % (0-1.3); MPV 9.6 fL (7.6-11.3); RBC Red Blood Cell Count 3.92 M/uL (3.86-4.86)
[2020-02-20 05:42] LABS: Magnesium 2.7 mg/dL (1.8-2.4); Potassium 4.6 mmol/L (3.5-5.1)
[2020-02-20] MEDS: PANTOPRAZOLE 40MG TABLET PO SCH (06:30)
[2020-02-20] MEDS ORDERED: POLYETHYL GLY 3350 17 GM/DOSE PO PRN (06:36)
[2020-02-20] MEDS ORDERED: guaiFENesin 100 MG/5 ML UCUP PO PRN (06:36)
[2020-02-20] MEDS ORDERED: ALBUTEROL 2.5 MG/3 ML NEB SOL NEB PRN (06:36)
[2020-02-20] MEDS ORDERED: LORAZEPAM 1 MG TABLET PO PRN (06:36)
[2020-02-20] MEDS ORDERED: TRAMADOL HCL 50 MG TAB PO PRN (06:36)
[2020-02-20] MEDS ORDERED: BENZONATATE 100 MG CAP PO PRN (06:36)
[2020-02-20] MEDS ORDERED: SIMETHICONE 80 MG TAB PO PRN (06:36)
[2020-02-20] MEDS: Meropenem 500 MG in NA CHLORIDE 0.9% 100 ML IV SCH ×2 (08:48→20:35)
[2020-02-20] MEDS: METOPROLOL XL 25 MG TAB PO SCH ×2 (08:49→20:36)
[2020-02-20] MEDS: MAGNESIUM OXIDE 400 MG TAB PO SCH (08:49)
[2020-02-20] MEDS: ZINC SULFATE 220 MG CAP PO SCH (08:50)
[2020-02-20] MEDS: MONTELUKAST 10 MG TAB PO SCH (08:50)
[2020-02-20] MEDS: ASCORBIC ACID 500 MG TABLET PO SCH (08:50)
[2020-02-20] MEDS: CYANOCOBALAMIN 1,000 MCG TAB PO SCH (08:51)
[2020-02-20] MEDS: JUVEN PACKET PO SCH ×3 (08:52→20:35)
[2020-02-20] MEDS: AMIODARONE HCL 200 MG TAB PO SCH (09:00)
[2020-02-20] MEDS ORDERED: PANTOPRAZOLE 40 MG INJ IVP SCH (09:00)
--- NOTE | 2020-02-20 09:12 | P.PN ---
Subjective Date of Service: 02/20/20 Chief Complaint: Urosepsis/NSTEMI Subjective: Improving (Amina is alert and oriented x2) Physical Examination - Vital Signs Temperature: 97.5 F Blood Pressure: 100/50 Pulse: 63 Respirations: 16 Pulse Ox (%): 90 - Physical Exam General: Alert, In no apparent distress, Oriented x2 HEENT: Atraumatic, Normocephalic, EOMI Neck: Supple Respiratory: Clear to auscultation bilaterally, Normal air movement Cardiovascular: No edema, Normal pulses, Regular rate/rhythm, Normal S1 S2 Gastrointestinal: Normal bowel sounds, Soft and benign, Non-distended Musculoskeletal: No clubbing, No swelling, No contractures, No erythema, No tenderness, No warmth Integumentary: No rashes, No breakdown, No significant lesion, No tenderness/swelling, No erythema, No warmth, No cyanosis Neurological: Normal speech, Normal affect Assessment & Plan Physician Review: Patient Assessed, Agree with Above Assessment and Plan Physician Review Additional Text: Assessment Patient is a 79 year old female admitted overnight for acute encephalopathy. Found to have severe sepsis secondary to UTI. Blood and urine cultures showed gram positive cocci in chains and pairs. Multiple end-organ damage: NSTEMI, anemia and LAURIE. Her maximum troponin 7.4. She received 1 unit for a Hb 6.6 on admission. On apixaban prior to arrival. At this time, she is DNR. Family recommends no aggressive measures. She was evaluated by Cardiology on 02/18. Severe sepsis UTI Strep bacteremia NSTEMI LAURIE Acute encephalopathy Dementia Anemia Plan Continue meropenem and IVF infusion Repeat blood cultures 2-D echocardiogram pending Hold apixaban Pending recommendations from palliative care Daily CBC, and renal panel
[2020-02-20] MEDS: NA CHLORIDE 0.9% 1,000 ML IV SCH ×2 (09:21→18:44)
--- NOTE | 2020-02-20 11:02 | CON ---
Date of Consultation: 02/19/2020 Admitted on 02/18/[address] Galvez. I saw the patient on 02/19/2020. Reason For Consultation: Elevated troponin. History Of Present Illness: Mrs. Rheman is an 79-year-old woman. She is a do not resuscitate, came in with urosepsis, was found to have elevated troponin, and I was consulted. The patient is a do not resuscitate. Again, her main complaint was altered mental status and dementia. She did not have an y chest pain, shortness of breath, nausea, vomiting, diaphoresis, PND, orthopnea, pedal edema, palpit ation, or syncope. She has a history of dementia and Alzheimer. Has recently diagnosed with UTI and pneumonia. She has an extensive past medical history and cardiac history including hypocalcemia, hy perlipidemia, hypertension, hypothyroidism, atrial fibrillation, CVA, dementia, degenerative joint di sease, history of pacemaker, and dysphagia. She takes amiodarone. She takes amlodipine. She takes Eliquis. She is on gabapentin and Synthroid. She is on metoprolol, potassium, omeprazole, Singulair , and Xopenex. Allergies: CODEINE, PENICILLIN, AND SULFA. Review of Systems: Negative. Social History: Negative. Family History: Noncontributory. Physical Examination: Vital Signs: Stable. She was afebrile. HEENT: Negative. Neck: Supple with no bruit. Chest: Clear. Cardiac: Revealed regular rhythm and rate. No murmurs, gallops, or rubs. Abdomen: Benign. Extremities: Revealed no clubbing, cyanosis, or edema. Diagnostic Data: Her chest x-ray showed moderate congestive heart failure, possible pneumonia. EKG shows sinus rhythm with a right bundle-branch block and left ventricular hypertrophy. She had a crea tinine of 2.25. Her white count was 21,000 with a hemoglobin of 6.4. Her troponin was 7.12. Impression And Plan: Elevated troponin secondary to renal failure and demand ischemia from severe an emia as well as possible infection, may be pneumonia. Certainly, congestive heart failure may have c aused some of the elevation of the troponin. The patient is demented, has do not resuscitate orders, and have no plan to do any invasive studies and no heart catheterization will be planned. Her other issues including paroxysmal atrial fibrillation. She is in sinus rhythm with paced rhythm, on amiod arone and Eliquis and I would definitely continue that. She has history of hypertension that is well controlled. She has a pacemaker that is functioning appropriately. She has a history of hypocalcem ia, hypothyroidism, dysphagia, and history of cerebrovascular accident in the past, all of those are stable. The patient has not had any chest pain. If the patient becomes acutely sick as far as her c ardiac status is concerned, we will readdress the issue. For now, we will continue to follow her on an as-needed basis. No cardiac workup is recommended at this point. AUSTEN/UBALDO Voice ID: [id number] Report ID: [id number]
--- NOTE | 2020-02-20 14:31 | RAD REPORT ---
EXAM DESCRIPTION: [place] Single View02/20/2020 1:58 pm CLINICAL HISTORY: Shortness of breath COMPARISON: February 18, 2020 FINDINGS: Since the prior exam there has been worsening in [id number]-[id number] bilateral pulmonary o pacities. Pleural effusions are suspected The heart is moderately enlarged. Pacemaker leads are in place. IMPRESSION: Worsening CHF
--- OUTSIDE RECORDS SUMMARY | 2020-02-20 15:51 | XMS REPORT | Continuity of Care Document ---
:1940 Author Organization [facility] t Address [address] [place] [address] Care Team Providers Name Role Phone Gina [...] Active U 2020-0 [facility] ins 06-07 00:00: [address] codeine DA Active U 2020-0 [facility] 06-07 00:00: [address] SULFA DA Active U 2020-0 [facility] DRUGS 06-07 00:00: [address] Medications This patient has no known medications. Procedures This patient has no known procedures. Encounters Start End Encounter Admission Attending Care Care Encounter Source Date/Time Date/Time Type Type Clinicians Facility Department ID 2019-10-24 2019-10-24 [facility] [id number] 13:01:00 23:59:00 Encounter Claudio GRIFFITH [id number] CARE [id number] PAVILLION [id number] 2019-10-24 2019-10-24 Abstract Daliln [facility] [id number] 00:00:00 00:00:00 [place] [facility] [id number] [facility] CARE [id number] PAVILLION [id number] 2019-10-23 2019-10-23 Telephone [facility] [id number] 00:00:00 00:00:00 [facility] [id number] CLINICS [id number] 2019-09-19 2019-09-23 Office Gina [facility] [id number] 10:38:20 09:03:40 Visit Claudio [facility] [id number] CARE [id number] PAVILLION [id number] Results Test Description Test Time Test [...] HEMOLYZEDNOTIFIED PATIENT CARE STAFF: JADYN XR CHEST [id number] 07:36:00 Patient Name: ANAHI TOLEDO Unit No: [id number] EXAMS: CPT CODE: [id number] XR CHEST 1V 95098 EXAM: - XR CHEST 1V 06/09/2019 5:00 [...] [email or web address] Orig Print D/T: S: 06/09/2019 (0739) [facility] NAME: ANAHI TOLEDO [address] PHYS: [place] [address] : 1940 AGE: 79 SEX: F LOC: Z.357 A PHONE #: [phone] EXAM DATE:06/09/2019 STATUS: ADM IN FAX #: [phone] RADIOLOGY NO: PAGE 1 Signed ReportCBC W/AUTO [id number] 05:49:00 Test Item Value Reference Range Interpretation [...] K/mm3 0.0-0.1 N NRBC#) - XR CHEST [id number] 15:38:00 Patient Name: ANAHI TOLEDO Unit No: [id number] EXAMS: CPT CODE: [id number] XR CHEST 1V [id number] EXAM: Portable chest x-ray Dictation location: [id number]: None INDICATION: S/P ICD DISCUSSION: A dual-lead [...] 06/08/2019(1538) [id number] Orig Print D/T: S: 06/08/2019 (3570) [facility] NAME: ANAHI TOLEDO [place] [address] PHYS: [place] [address] : 1940 AGE: 79 SEX: F LOC: Z.357 A PHONE #: [phone] EXAM DATE: 06/08/2019 STATUS: ADM IN FAX #: [phone] RADIOLOGY NO: PAGE 1 Signed ReportBASIC METABOLIC [id number] 08:36:00 Test Item Value Reference Range Interpretation [...] 0-189 mg/dL VERY HIGH...... ...>/= 190 mg/dL [id number] 08:36:00 Test Item Value Reference Range Interpretation Comments MAGNESIUM (test code = MAG) 2.1 MG/DL 1.6-2.3 N BASIC METABOLIC [id number] 08:26:00 Test Item Value Reference Range Interpretation [...] LDL (test MG/DL 0-99 code = LDL) [id number] 08:26:00 Test Item Value Reference Range Interpretation Comments MAGNESIUM (test code = MAG) 2.1 MG/DL 1.6-2.3 N BASIC METABOLIC [id number] 08:25:00 Test Item Value Reference Range Interpretation [...] LDL (test MG/DL 0-99 code = LDL) [id number] 08:25:00 Test Item Value Reference Range Interpretation Comments MAGNESIUM (test code = MAG) MG/DL 1.6-2.3 BASIC METABOLIC [id number] 08:22:00 Test Item Value Reference Range Interpretation [...] LDL (test code = LDL) MG/DL 0-99 [id number] 08:22:00 Test Item Value Reference Range Interpretation Comments MAGNESIUM (test code = MAG) MG/DL 1.6-2.3 PROTHROMBIN [id number] 08:17:00 Test Item Value Reference Range Interpretation [...] syste nicola embolism. 3.0 - 4.5 PTT [id number] 08:17:00 Test Item Value Reference Range Interpretation Comments PTT ACTIVATED (test code = APTT) 25.8 SECONDS 22.0-33.0 N CBC W/AUTO [id number] 07:59:00 Test Item Value Reference Range Interpretation [...]
[2020-02-20] MEDS: FUROSEMIDE 40 MG/4 ML VIAL IV SCH (16:03)
[2020-02-20] MEDS ORDERED: ATORVASTATIN 20 MG TAB PO SCH (21:00)
[2020-02-20 21:39] LABS: Urine Appearance CLOUDY; Urine Bilirubin NEGATIVE (NEG); Urine Blood TRACE (NEG); Urine Color YELLOW; Urine Glucose NEGATIVE (NEG); Urine Protein TRACE (NEG); Urine Specific Gravity 1.015 (1.005-1.030); Urine Urobilinogen 0.2 mg/dL (0.2-1.0); Urine pH 5.5 (5.0-7.0)
[2020-02-20 21:46] LABS: Urine Microscopic Reflex ORDER UMIC
[2020-02-20 21:55] LABS: Urine Bacteria <20 /HPF (<20); Urine Coarse Granular Casts 0-5 /LPF (NONE SEEN); Urine Culture Reflex Order REFLEXED; Urine Mucus 2+ /HPF (NONE SEEN)
[2020-02-21] MEDS: PANTOPRAZOLE 40MG TABLET PO SCH (05:35)
[2020-02-21] MEDS ORDERED: LEVOTHYROXINE SOD 0.125 MG TAB PO SCH (06:00)
[2020-02-21 06:42] LABS: Basophils % 0.4 % (0-1.3); Hematocrit 32.4 % (36.0-45.0); Lymphocytes % 9.7 % (15.3-44.8); MPV 9.3 fL (7.6-11.3); RBC Red Blood Cell Count 4.12 M/uL (3.86-4.86)
[2020-02-21] MEDS: FUROSEMIDE 40 MG/4 ML VIAL IV SCH (06:56)
[2020-02-21 06:59] LABS: Magnesium 2.8 mg/dL (1.8-2.4); Potassium 4.6 mmol/L (3.5-5.1)
--- NOTE | 2020-02-21 08:17 | ECHO ---
HEIGHT: 5 ft 5 in WEIGHT: 132 lb 4.8 oz DATE OF STUDY: 02/20/[address]: Prince Kj Galvez MD 2-DIMENSIONAL: YES M.MODE: YES DOPPLER: YES COLOR FLOW: YES TDS: NO PORTABLE: NO DEFINITY: NO BUBBLE STUDY: NO DIAGNOSIS: ASSESS FOR VEGETATION CARDIAC HISTORY: CATHERIZATION: YES SURGERY: NO PROSTHETIC VALVE: NO PACEMAKER: MEASUREMENTS (cm) DIASTOLIC (NORMALS) SYSTOLIC (NORMALS) IVSd 1.3 (0.6-1.2) LA Diam 4.3 (1.9-4.0) LVEF 50% LVIDd 6.0 (3.5-5.7) LVIDs 4.5 (2.0-3.5) %FS 26% LVPWd 1.2 (0.6-1.2) Ao Diam 2.9 (2.0-3.7) 2 DIMENSIONAL ASSESSMENT: RIGHT ATRIUM: NORMAL LEFT ATRIUM: ENLARGED RIGHT VENTRICLE: NORMAL LEFT VENTRICLE: NORMAL TRICUSPID VALVE: MITRAL VALVE: PULMONIC VALVE: AORTIC VALVE: PERICARDIAL EFFUSION: MILD AORTIC ROOT: NORMAL LEFT VENTRICULAR WALL MOTION: NORMAL DOPPLER/COLOR FLOW: SEE BELOW COMMENTS: LOW NORMAL LEFT VENTRICULAR EJECTION FRACTION 50-55%. LARGE MOBILE MASS IN AORTIC VALVE MEASURING 1.5 CENTIMETERS, THAT COULD REPRESENT VEGETATION IN THE APPROPRIATE SETTINGS, PRIMARY HOPITALIST DR. GALVEZ WAS NOTIFIED. MODERATE AORTIC INSUFFICENCY. MILD MITRAL AND TRICUSPID REGURGITATION. TECHNOLOGIST: René CAMPO
--- NOTE | 2020-02-21 08:21 | P.DS ---
Admission Date: 02/18/20 Discharge Date: 02/21/20 Disposition: HOSPICE-HOME Discharge Condition: SERIOUS Reason for Admission: Urosepsis/NSTEMI Hospital Course: Patient is a 79 year old female who was admitted with severe sepsis and several end-organ damage: LAURIE, NSTEMI, anemia. She was found to have UTI secondary to Proteus mirabilis, and persistent bactermia with gram positive cocci in chains and pairs. 2-D Echo was concerning for a large mass around the aortic valve. There is a concern for infective endocarditis. Patient is DNR and family has opted for non-invasive approach at this time. She will be discharged with home hospice. Vital Signs/Physical Exam: Temp Pulse Resp BP Pulse Ox 97.0 F 78 16 130/54 L 92 02/21/20 04:00 02/21/20 06:56 02/21/20 04:00 02/21/20 06:56 02/21/20 04:00 General: Acute distress, Other (mild respiratory distress) HEENT: Atraumatic, Normocephalic, EOMI Neck: Supple Respiratory: Diminished, Crackles/rales Cardiovascular: No edema, Normal pulses, Regular rate/rhythm, Normal S1 S2 Gastrointestinal: Normal bowel sounds, Soft and benign, Non-distended, No tenderness Musculoskeletal: No clubbing, No swelling, No contractures, No erythema, No tenderness, No warmth Neurological: Sensation intact, Normal affect, Dementia Laboratory Data at Discharge: WBC 9.9 K/uL (4.3-10.9) D 02/21/20 06:08 Hgb 10.2 g/dL (12.0-15.0) L 02/21/20 06:08 Hct 32.4 % (36.0-45.0) L 02/21/20 06:08 Plt Count 217 K/uL (152-406) 02/21/20 06:08 PT 29.5 SECONDS (9.5-12.5) H 02/18/20 16:22 INR 2.55 02/18/20 16:22 APTT 35.0 SECONDS (24.3-36.9) 02/18/20 16:22 Sodium 145 mmol/L (136-145) 02/21/20 06:08 Potassium 4.6 mmol/L (3.5-5.1) 02/21/20 06:08 BUN 79 mg/dL (7-18) H 02/21/20 06:08 Creatinine 2.21 mg/dL (0.55-1.3) H 02/21/20 06:08 Glucose 127 mg/dL (74-106) H 02/21/20 06:08 Magnesium 2.8 mg/dL (1.8-2.4) H 02/21/20 06:08 Total Bilirubin 0.5 mg/dL (0.2-1.0) 02/18/20 16:22 AST 19 U/L (15-37) 02/18/20 16:22 ALT 13 U/L (12-78) 02/18/20 16:22 Alkaline Phosphatase 93 U/L (45-117) 02/18/20 16:22 Troponin I 7.12 ng/mL (0.0-0.045) H* 02/19/20 13:07 Amylase 21 U/L (25-115) L 02/18/20 16:22 Lipase 43 U/L (73-393) L 02/18/20 16:22 Home Medications: Amiodarone HCl 100 mg PO DAILY 09/04/19 Amlodipine Besylate 5 mg PO DAILY 09/04/19 Apixaban [Eliquis] 1 tab PO BID 09/04/19 Ascorbic Acid 1 tab PO DAILY 09/04/19 Cyanocobalamin [Vitamin B-12*] 1 tab PO DAILY 09/04/19 Gabapentin 1 tab PO TID 09/04/19 Metoprolol Succinate 12.5 mg PO BID 09/04/19 Montelukast [Singulair*] 10 mg PO DAILY 09/04/19 Multivitamin 1 tab PO DAILY 09/04/19 Omeprazole 40 mg PO DAILY 09/04/19 Ondansetron [Zofran (Odt)*] 4 mg PO Q8H PRN 09/04/19 Polyethylene Glycol 3350 [Miralax] 17 gm PO DAILY PRN 09/04/19 Simethicone [Mylicon*] 1 tab PO Q12H PRN 09/04/19 Simvastatin 40 mg PO BEDTIME 09/04/19 traMADol HCL [Ultram*] 1 tab PO Q6HP PRN 09/04/19 Benzonatate [Tessalon Perle*] 1 cap PO Q8H PRN 01/23/20 Levalbuterol HCl [Xopenex] 0.63 mg NEB Q6H PRN 01/23/20 Potassium Chloride 10 meq PO DAILY 01/23/20 Furosemide [Lasix] 20 mg PO 1500 #30 01/27/20 Furosemide [Lasix] 40 mg PO 0700 #30 01/27/20 Spironolactone [Aldactone*] 25 mg PO DAILY #30 tab 01/27/20 Amox/Clavulanate [Augmentin 875-125 Tab] 1 each PO BID 02/18/20 Calcium Carbonate/Vitamin D3 [Calcium 600 + Vit D 400 Tablet] 1 each PO DAILY 02/18/20 Diphenhydramine HCl [Benadryl Allergy] 25 mg PO Q8HP PRN 02/18/20 Doxycycline Hyclate 100 mg PO BID 02/18/20 Guaifenesin [Cough Syrup] 10 ml PO Q8HP PRN 02/18/20 LORazepam [Ativan] 1 mg PO Q12H PRN 02/18/20 Lactobacillus Acidophilus [Acidophilus] 1 each PO BID 02/18/20 Levothyroxine [Synthroid] 125 mcg PO [id number] 02/18/20 Magnesium Oxide [Magnesium] 400 mg PO DAILY 02/18/20 Zinc 4 tab PO DAILY 02/19/20 Diet: Regular
[2020-02-21] MEDS: JUVEN PACKET PO SCH (09:00)
[2020-02-21] MEDS: Meropenem 500 MG in NA CHLORIDE 0.9% 100 ML IV SCH (09:10)
[2020-02-21] MEDS: MONTELUKAST 10 MG TAB PO SCH (09:11)
[2020-02-21] MEDS: AMIODARONE HCL 200 MG TAB PO SCH (09:11)
[2020-02-21] MEDS: CYANOCOBALAMIN 1,000 MCG TAB PO SCH (09:12)
[2020-02-21] MEDS: MAGNESIUM OXIDE 400 MG TAB PO SCH (09:12)
[2020-02-21] MEDS: ZINC SULFATE 220 MG CAP PO SCH (09:12)
[2020-02-21] MEDS: ASCORBIC ACID 500 MG TABLET PO SCH (09:12)
[2020-02-21] MEDS: METOPROLOL XL 25 MG TAB PO SCH (09:13)
[2020-02-21 12:10] VITALS: BP 131/56; TEMP 96.6
[2020-02-21 12:49] VITALS: O2SAT 92
== END 2020-02-21 12:27 | disposition hospice, home (50) | DRG 871 ==
LOC: ER 14:54 → ERHOLD 18:55 → 2ND 21:18
PROVIDERS: ADMIT Internal Medicine; ATTEND Internal Medicine
PROC: 30233N1 Transfusion of Nonautologous Red Blood Cells into Peripheral Vein, Percutaneous Approach (ICD-10-PCS; principal; 2020-02-18)
DX: A40.9 Streptococcal sepsis, unspecified (principal); I33.0 Acute and subacute infective endocarditis; I21.A1 Myocardial infarction type 2; N39.0 Urinary tract infection, site not specified; I48.20 Chronic atrial fibrillation, unspecified; N17.9 Acute kidney failure, unspecified; G93.40 Encephalopathy, unspecified; J81.1 Chronic pulmonary edema; Z88.5 Allergy status to narcotic agent; Z88.0 Allergy status to penicillin; Z79.01 Long term (current) use of anticoagulants; Z79.890 Hormone replacement therapy; Z79.899 Other long term (current) drug therapy; E78.5 Hyperlipidemia, unspecified; I10 Essential (primary) hypertension; Z86.73 Personal history of transient ischemic attack (TIA), and cerebral infarction without residual deficits; Z95.0 Presence of cardiac pacemaker; E03.9 Hypothyroidism, unspecified; Z66 Do not resuscitate; Z88.1 Allergy status to other antibiotic agents; D63.8 Anemia in other chronic diseases classified elsewhere; F03.90 Unspecified dementia, unspecified severity, without behavioral disturbance, psychotic disturbance, mood disturbance, and anxiety; R65.20 Severe sepsis without septic shock; J98.8 Other specified respiratory disorders; B96.4 Proteus (mirabilis) (morganii) as the cause of diseases classified elsewhere; I35.9 Nonrheumatic aortic valve disorder, unspecified; Z20.828 Contact with and (suspected) exposure to other viral communicable diseases
CPT/HCPCS: 36415; 70450; 71045; 74018; 80048; 80076; 81003; 81015; 82150; 82550; 82553; 83605; 83690; 83735; 84145; 84484; 85014; 85018; 85025; 85610; 85730; 86850; 86900; 86901; 87040; 87070; 87077; 87081; 87086; 87088; 87186; 87205; 87804; 93005; 93306; 94640; 94660; 96365; 96367; 96375; 99285; C9113; J0696; J1940; J2185; J7030; P9016; U0003